=== PATIENT | female | born 1935 | race Caucasian/White ===

== ENCOUNTER 2017-06-24 08:07 | Emergency (ER) | payer MEDICARE, OTHER, SELFPAY | END 2017-06-24 10:15 | disposition home or self-care (01) | PROVIDERS: Emergency Provider Emergency Medicine; Family Provider Internal Medicine Adolescent Medicine; Visit Provider Emergency Medicine | DX: E86.0 Dehydration (principal); A08.4 Viral intestinal infection, unspecified; I10 Essential (primary) hypertension; E78.5 Hyperlipidemia, unspecified; Z79.02 Long term (current) use of antithrombotics/antiplatelets; Z79.82 Long term (current) use of aspirin; Z79.899 Other long term (current) drug therapy | CPT/HCPCS: 96360; 99282 ==

== ENCOUNTER → 2017-07-27 11:03 | Outpatient (CLI) | payer MEDICARE, OTHER, SELFPAY ==
--- NOTE | 2017-07-27 11:10 | XR_ITS ---
XR chest 2V Ordering Physician: Amena Fiore Patient Age: 82 years: Female HISTORY: ITS.REASON: COUGHcongestion TECHNIQUE: PA and lateral CXR COMPARISON :2 view chest 2016 FINDINGS : Left lung: Streaky moderate density Infiltrate left infrahilar region towards left lower lobe. A patchy infiltrate follows airways with the bronchopneumonia pattern and likely airway thickening here.. There could be some minimal infiltrate at the lingula but this is less convincing. The left upper lung field is clear. . 11 mm nodule projected over the anterior rib 5-6. It is similar to 2017 Right lung. Blunting right CP angle reflects mild chronic changes. This is seen on a prior CT chest December & April 2017 and greater detail and can be followed with interval chest CT to verify stability of this indeterminate nodule IMPRESSION: 1. Left lower lobe pneumonia 2. Again see 11 mm nodule left mid to lower lung field. As recommended prior CT chest from December and April 2017.- Warrants ongoing CT follow-up in October 2017
[2017-07-28 11:32] LABS: Vitamin B12 1439 pg/mL (232-1245); Vitamin D 25 Hydroxy 49.5 ng/mL (30.0-100.0)
== END ==
PROVIDERS: PCP Internal Medicine Adolescent Medicine; Visit Provider Nurse Practitioner Family
DX: R05 Cough (principal)
CPT/HCPCS: 36415; 71046; 82607; 82652

== ENCOUNTER 2017-12-16 18:11 | Inpatient (IN) ==
[2017-12-16 18:37] LABS: Basophils % 0.6 % (0.1-2.0); Eosinophils # 0.4 K/mm3 (0.0-0.4); Eosinophils % 4.7 % (0.1-12.0); Hematocrit 41.2 % (37.0-47.0); Hemoglobin 12.8 g/dL (12.2-16.2); Lymphocytes # 1.9 K/mm3 (0.7-4.5); Lymphocytes % 24.3 K/mm3 (10-50); Mean Corpuscular Hemoglobin 29.8 pg (27.0-31.2); Monocytes # 0.5 K/mm3 (0.1-1.0); Monocytes % 6.2 % (1.7-9.3); Neutrophils % 64.2 % (37.0-80.0); Platelet Count 303 K/mm3 (142-424); Red Blood Count 4.29 M/mm3 (4.20-5.40); Red Cell Distribution Width 13.2 % (11.5-17.5); White Blood Count 7.8 K/mm3 (4.8-10.8)
[2017-12-16 18:57] LABS: Albumin/Globulin Ratio 1.1 (1.1-1.8); Anion Gap 12.6 mEq/L (5-15); Bilirubin,Total 0.4 mg/dL (0.2-1.0); Calcium 9.3 mg/dL (8.5-10.1); Globulin 3.5 gm/dl (1.3-3.2); Potassium 3.6 mmoL/L (3.5-5.1); Total Protein,Serum 7.5 gm/dL (6.4-8.2)
--- NOTE | 2017-12-16 18:57 | Emergency Department Note ---
ED Disposition Clinical Impression: Closed right hip fracture Qualifiers: Encounter type: initial encounter Qualified Code(s): S72.001A - Fracture of unspecified part of neck of right femur, initial encounter for closed fracture Disposition: Still a Patient Condition on Discharge: Good - Critical Care Critical Care Time: No Attestation: On 12/16/17, the high probability of a clinically significant, sudden or life threatening deterioration of the following system(s) required my full and direct attention, intervention and personal management. The time I documented below is in addition to time spent performing reported procedures but includes the following listed in this critical care notation. Medical Decision Making - Aubrey Inquiry Pt receiving controlled substance: No Vital Signs: 12/16/17 18:24 Temperature 98 F Temperature Source Oral Pulse Rate [Right Brachial] 72 Respiratory Rate 20 Blood Pressure [Right Arm] 136/91 Blood Pressure Mean [Right Arm] 106 Blood Pressure Source [Right Arm] Automatic Cuff Blood Pressure Position [Right Arm] Sitting 02 Sat by Pulse Oximetry 92 L Oxygen Delivery Method Room Air - Lab Data Lab Results 12/16/17 18:10: WBC 7.8, RBC 4.29, Hgb 12.8, Hct 41.2, MCV 96.0, MCH 29.8, MCHC 31.0 L, RDW 13.2, Plt Count 303, MPV 7.0 L, Neut % (Auto) 64.2, Lymph % (Auto) 24.3, [place] % (Auto) 6.2, Eos % (Auto) 4.7, Baso % (Auto) 0.6, Neut # (Auto) 5.0 , Lymph # (Auto) 1.9, [place] # (Auto) 0.5, Eos # (Auto) 0.4, Baso # (Auto) 0.0 12/16/17 18:10: Sodium 134 L, Potassium 3.6, Chloride 98, Carbon Dioxide 27, Anion Gap 12.6, BUN 13, Creatinine 0.62, Estimated Creat Clear 43, Estimated GFR 92, Est GFR ( Amer) 111, Glucose 121 H, Calcium 9.3, Total Bilirubin 0.4, AST 25, ALT 30, Alkaline Phosphatase 78, Total Protein 7.5, Albumin 4.0, Globulin 3.5 H, Albumin/Globulin Ratio 1.1 Result diagrams: 12/16/17 18:10 12/16/17 18:10 Orders (Tests/Meds): ED MEDICATIONS Generic Name Dose Route Start Last Admin Trade Name Freq PRN Reason Stop Dose Admin Sodium Chloride 1,000 mls @ 75 mls/hr 12/16/17 20:30 Sod Chlor 0.9% 1000ml Bag IV 01/15/18 20:29 .[id number] MUNIRA Discontinued Medications Generic Name Dose Route Start Last Admin Trade Name Freq PRN Reason Stop Dose Admin Acetaminophen 650 mg 12/16/17 18:34 12/16/17 18:35 Acetaminophen 325mg Tab PO 12/16/17 18:35 650 mg ONCE ONE Administration ORDERS Category Date Time Status CT cervical spine wo con Stat Cat Scan 12/16/17 18:[address] head/brain wo con Stat Cat Scan 12/16/17 18:[address] hip RT wo con Stat Cat Scan 12/16/17 19:33 Taken Chest XR AP view [XR chest AP] Stat Exams 12/16/17 18:16 Taken XR hip RT 2-3V w/pelvis Stat Exams 12/16/17 18:17 Taken UA [Urinalysis and Microscopic] Stat Lab 12/16/17 18:20 Ordered - Radiology Data #1 Image(s): Chest, Hip Hip: Probable nondisplaced subcapital fracture right hip Chest: No acute disease - CT Data CT Scan: Head, C-Spine, Other (right hip) Time Received: 19:[address] Reviewed: Yes: I have viewed the radiologist's interpretation Findings Narrative: CT scan interpreted by ad radiologist. Faxed report received and reviewed: Head: No acute findings Cervical spine: No acute fracture Right hip: Impacted subcapital fracture - Physician Consults Physician Consulted: Rachael Time: 19:38 Reason -: Admission Comment/Response: Agrees to admit the patient to the hospital. We discussed the patient's clinical information, including history, exam, laboratory and radiology results and ED course. Per hospital procedure, I will write temporary bridge inpatient orders on the patient. Specific orders requested by the admitting physician: Orthopedic consult Additional Consult: Maria T Time: 19:25 Reason -: Pt condition General Adult HPI - General Chief complaint: Fall Stated complaint: head and right hip pain Time Seen by Provider: 12/16/17 18:57 Mode of Arrival: Family Vehicle Limitations: No Limitations Description of Symptoms (Recalled from ER Triage Doc. by RN): S/P FALL. SHORTENING OF RIGHT LEG AND KNOT RIGHT SIDE OF HEAD. TAKES PLAVIX AFTER TIA 3 YEARS AGO - History of Present Illness HPI narrative: Patient states had a mechanical fall and injured her right hip and her head. No loss of consciousness, but has a bump on the right side of her head. Denies neck pain. Hip pain is lateral. She was unable to get up and walk afterwards. No numbness or weakness. - Related Data Home Medications Medication Instructions Recorded Confirmed Acetaminophen/Diphenhydramine 2 each PO HS 12/16/17 12/16/17 [Tylenol Pm Ex-Strength Caplet] Aspirin [Aspir 81] 81 mg PO DAILY 12/16/17 12/16/17 Biotin 5,000 mcg SL DAILY 12/16/17 12/16/17 Calcium Carb, Citrate/Vit D3 1 each PO DAILY 12/16/17 12/16/17 [Citracal + D ER Tablet] Clopidogrel Bisulfate [Plavix 75mg 75 mg PO DAILY 12/16/17 12/16/17 Tab] Ezetimibe/Simvastatin [Vytorin 1 each PO DAILY 12/16/17 12/16/17 10-20 mg Tablet] Fluticasone Propionate [Flonase 1 spr NS DAILY 12/16/17 12/16/17 50mcg nasal spray 16gm] Losartan Potassium 25 mg PO DAILY 12/16/17 12/16/17 Multivitamin/Iron/Folic Acid 1 each PO DAILY 12/16/17 12/16/17 [Centrum Complete Multivit Tab] Nadolol 40 mg PO DAILY 12/16/17 12/16/17 Omeprazole [Omeprazole 20mg 20 mg PO DAILY 12/16/17 12/16/17 Capsule] Oxybutynin Chloride [Oxybutynin 10 mg PO DAILY 12/16/17 12/16/17 Chloride ER] Ubidecarenone [Co Q-10] 300 mg PO DAILY 12/16/17 12/16/17 hydroCHLOROthiazide [HCTZ 12.5mg 12.5 mg PO DAILY 12/16/17 12/16/17 cap] Allergies Allergy/AdvReac Type Severity Reaction Status Date / Time No Known Allergies Allergy Verified 12/16/17 18:31 [facility] History - Social History Alcohol Intake: never - Psychiatric History Expresses thoughts of harming self/others: None Suicide Plan Description: No Plan ROS Obtained: Yes All systems reviewed & no additional complaints - Constitutional Constitutional: Denies fever(s) - Cardiovascular Cardiovascular: Denies chest pain - Respiratory Respiratory: No dyspnea - Gastrointestinal Gastrointestingal: Denies: abdominal pain, nausea, vomiting - Musculoskeletal Musculoskeletal: Reports joint pain (Right hip), Denies back pain, Denies neck pain - Neurologic Neurologic: Denies headache(s), Denies numbness, Denies weakness Physical Exam - General General appearance: alert, in no apparent distress - Head Head exam: other (5 cm hematoma right parietal with minor abrasion, no laceration) - Eye Eye exam: Present: normal appearance, PERRL, EOMI - ENT ENT exam: Present: normal exam, normal oropharynx, mucous membranes moist, TM's normal bilaterally, normal external ear exam - Neck Neck exam: Present: normal inspection, full ROM, trachea midline. Absent: meningismus, lymphadenopathy - Chest Chest inspection: Present: normal inspection, symmetric chest wall rise. Absent : tenderness - Respiratory Respiratory exam: Present: normal lung sounds bilaterally. Absent: respiratory distress - Cardiovascular Cardiovascular exam: Present: regular rate, normal rhythm. Absent: JVD - Abdominal Exam Abdominal exam: Present: soft, normal bowel sounds. Absent: distention, tenderness, guarding - Extremities Exam Extremities exam: Present: normal capillary refill - Expanded Lower Extremity Exam Right Comment: Tenderness over right greater trochanter. Pain with flexion at 30. Pain with internal and external rotation. Mild shortening and external rotation. Neurovascular status intact. Skin intact. - Back Exam Back exam: Present: normal inspection. Absent: tenderness - Neurological Exam Neurological exam: Present: alert, oriented X3 - Psychiatric Psychiatric exam: Present: normal affect, normal mood - Skin Skin exam: Present: warm, dry, intact, normal color
[2017-12-16 20:32] LABS: Microscopic, Urine URINE MICROSCOPIC (MICROSCOPIC)
[2017-12-16 20:33] LABS: Appearance,Urine CLEAR (Clear); Bilirubin,Urine Negative (Negative); Blood, Urine TRACE-L (Negative); Color,Urine YELLOW (Yellow); Glucose,Urine (UA) Negative (Negative); Ketones,Urine Negative (Negative); Leukocyte Esterase,Urine Negative (Negative); PH,Urine 5.5 (5.0-8.5); Protein,Urine Negative (Negative); Urobilinogen,Urine 0.2 EU/dl (0.2)
[2017-12-16 20:49] LABS: Bacteria,Urine 1+ /lpf; Mucus,Urine 1+ /lpf; Squamous Epithelial Cell,Urine Occasional #/hpf (0-5)
--- NOTE | 2017-12-16 21:36 | Consult Report ---
*Admission Date: 12/16/17 *Chief complaint: R hip pain *History of present illness: 82 yo female fell at home incurring displaced subcapital right hip fx. Seen in ED and admitted. Pt has hx of what sounds to be a TIA some 3 years ago and is on Plavix 75mg daily, last taken this a.m. She is alert, cooperative in mild pain. Head--No evident lacerations but has hematoma right Neck--Nontender to palpation w/o stepoff of Cspine Chest--nontender w/o deformity Pelvis--stable to compression/distraction Extremities--pedal pulses intact, sensate to light touch bilaterally Xrays.. Right hip shows displace oblique subcapital hip fx. Recommendations: We have discussed options with the patient including non- surgical option (NOT recommended) She would best be served by hemiarthroplasty after Plavix is metabolized sufficiently. Will discuss with Dr. Cano tomorrow but may be able to take to surgery Thursday. Review of Systems - *Neurologic Denies headache(s), Denies numbness, Denies weakness [facility] History - *Social History Alcohol Intake: never - Psychiatric History Expresses thoughts of harming self/others: None Suicide Plan Description: No Plan Meds Home Medications Medication Instructions Recorded Confirmed Type Acetaminophen/Diphenhydramine 2 each PO HS 12/16/17 12/16/17 History [Tylenol Pm Ex-Strength Caplet] Aspirin [Aspir 81] 81 mg PO DAILY 12/16/17 12/16/17 History Biotin 5,000 mcg SL DAILY 12/16/17 12/16/17 History Calcium Carb, Citrate/Vit D3 1 each PO DAILY 12/16/17 12/16/17 History [Citracal + D ER Tablet] Clopidogrel Bisulfate [Plavix 75mg 75 mg PO DAILY 12/16/17 12/16/17 History Tab] Ezetimibe/Simvastatin [Vytorin 1 each PO DAILY 12/16/17 12/16/17 History 10-20 mg Tablet] Fluticasone Propionate [Flonase 1 spr NS DAILY 12/16/17 12/16/17 History 50mcg nasal spray 16gm] Losartan Potassium 25 mg PO DAILY 12/16/17 12/16/17 History Multivitamin/Iron/Folic Acid 1 each PO DAILY 12/16/17 12/16/17 History [Centrum Complete Multivit Tab] Nadolol 40 mg PO DAILY 12/16/17 12/16/17 History Omeprazole [Omeprazole 20mg 20 mg PO DAILY 12/16/17 12/16/17 History Capsule] Oxybutynin Chloride [Oxybutynin 10 mg PO DAILY 12/16/17 12/16/17 History Chloride ER] Ubidecarenone [Co Q-10] 300 mg PO DAILY 12/16/17 12/16/17 History Vytorin 10-20 mg Tablet 10 - 20 mg PO DAILY 12/16/17 12/16/17 History hydroCHLOROthiazide [HCTZ 12.5mg 12.5 mg PO DAILY 12/16/17 12/16/17 History cap] Allergies Allergy/AdvReac Type Severity Reaction Status Date / Time No Known Allergies Allergy Verified 12/16/17 18:31 Exam Vital signs and Labs for Last 24 Hours: Temp Pulse Resp BP Pulse Ox 98.2 F 84 16 133/78 95 12/16/17 20:57 12/16/17 20:57 12/16/17 20:57 12/16/17 20:57 12/16/17 20:55 Laboratory Results - last 24 hr 12/16/17 18:10: WBC 7.8, RBC 4.29, Hgb 12.8, Hct 41.2, MCV 96.0, MCH 29.8, MCHC 31.0 L, RDW 13.2, Plt Count 303, MPV 7.0 L, Neut % (Auto) 64.2, Lymph % (Auto) 24.3, [place] % (Auto) 6.2, Eos % (Auto) 4.7, Baso % (Auto) 0.6, Neut # (Auto) 5.0 , Lymph # (Auto) 1.9, [place] # (Auto) 0.5, Eos # (Auto) 0.4, Baso # (Auto) 0.0 12/16/17 18:10: Sodium 134 L, Potassium 3.6, Chloride 98, Carbon Dioxide 27, Anion Gap 12.6, BUN 13, Creatinine 0.62, Estimated Creat Clear 43, Estimated GFR 92, Est GFR ( Amer) 111, Glucose 121 H, Calcium 9.3, Total Bilirubin 0.4, AST 25, ALT 30, Alkaline Phosphatase 78, Total Protein 7.5, Albumin 4.0, Globulin 3.5 H, Albumin/Globulin Ratio 1.1 12/16/17 20:29: Urine Color Yellow, Urine Appearance Clear, Urine pH 5.5, Ur Specific [place] 1.020, Urine Protein Negative, Urine Glucose (UA) Negative, Urine Ketones Negative, Urine Blood Trace-l, Urine Nitrate Negative, Urine Bilirubin Negative, Urine Urobilinogen 0.2, Ur Leukocyte Esterase Negative, Urine RBC None, Urine WBC 3-5, Ur Squamous Epith Cells Occasional, Urine Bacteria 1+, Urine Mucus 1+ I & O for Last 24 hours: Intake & Output 12/14/17 12/15/17 12/16/17 12/17/17 11:59 11:59 11:59 11:59 Weight 152 lb 2 oz Results - Labs Result Diagrams: 12/16/17 18:10 12/16/17 18:10 Labs: Abnormal lab results 12/16/17 12/16/17 Range/Units 18:10 18:10 MCHC 31.0 L (31.8-35.4) g/dL MPV 7.0 L (7.4-10.4) fl Sodium 134 L (136-145) mmol/L Glucose 121 H (74-106) mg/dL Globulin 3.5 H (1.3-3.2) gm/dl H & H 12/16/17 Range/Units 18:10 Hgb 12.8 (12.2-16.2) g/dL Hct 41.2 (37.0-47.0) % All other labs normal.
--- NOTE | 2017-12-17 07:44 | Pharmacy Consult Notes ---
[facility] Pharmacy VTE Monitoring - Patient Demographics Admission date: 12/17/17 Report Date: 12/17/17 Time: 07:44 Allergies/Adverse Reactions: Patient Allergies No Known Allergies Allergy (Verified 12/16/17 18:31) Height: 1.57 m Weight: 69.003 kg Patient Problems: Current Active Problems Closed right hip fracture (Acute) - VTE Risk Labs: VTE Related Lab Results Hgb 12.8 g/dL (12.2-16.2) 12/16/17 18:10 Hct 41.2 % (37.0-47.0) 12/16/17 18:10 Plt Count 303 K/mm3 (142-424) 12/16/17 18:10 BUN 13 mg/dL (7-18) 12/16/17 18:10 Creatinine 0.62 mg/dL (0.55-1.02) 12/16/17 18:10 Estimated Creat Clear 43 mL/min (0-300) 12/16/17 18:10 Was VTE Risk Assessment Performed: Yes VTE Score: 2 VTE Risk Level: Very Low Risk Clinical Trial Participant: No - Prophylaxis VTE Prophylaxis Ordered?: Yes Types of VTE Prophylaxis: TEDS Knee High
--- NOTE | 2017-12-17 07:54 | History & Physical Report ---
*Admission Date: 12/17/17 *Chief complaint: Fall with hip pain *History of present illness: 82 yo female fell at home incurring displaced subcapital right hip fx. Seen in ED and admitted. She reports that she was watering her [place] and turned around to come inside and tripped, striking her right hip and scalp on concrete. She came to the emergency department because of nonambulatory status and was found to have a right subcapital hip fracture. CT scan of head was unremarkable. Orthopedics consultation reviewed. [facility] History Medical History: Reports:: Cancer (L breast), Hyperlipidemia, Hypertension, Transient Ischemic Attacks (TIA) Denies:: Diabetes Mellitus Type 1, Diabetes Mellitus Type 2, MRSA Laterality Cases: Left: Total Knee Replacement Other Surgeries: Yes: Other (Bilateral cataract removal) Amputation: No Fractures: No - *Social History Smoking Status: Never smoker Alcohol Intake: never Occupational Status: retired Housing: apartment - Psychiatric History Expresses thoughts of harming self/others: None Suicide Plan Description: No Plan *Family Hx:: Cancer, Hyperlipidemia, Hypertension, Thyroid Disorder Review of Systems - Constitutional Denies anorexia, Denies body ache(s), Denies chills - Eyes Denies blind spots - ENT Denies abnormal hearing, Denies bleeding gums - *Cardiovascular Denies chest pain, Denies chest pain at rest, Denies shortness of breath with activity, Denies generalized swelling, Denies irregular heart rhythm - *Respiratory Denies change in phlegm color, Denies chest congestion - *Gastrointestinal Denies abdominal pain, Denies belching - *Genitourinary Denies abnormal periods, Denies abnormal vaginal bleeding - *Musculoskeletal Reports abnormal walking, Reports joint pain - *Neurologic Denies abnormal walking, Denies abnormal hearing, Denies headache(s), Denies numbness, Denies weakness Meds Home Medications Medication Instructions Recorded Confirmed Type Acetaminophen/Diphenhydramine 2 each PO HS 12/16/17 12/16/17 History [Tylenol Pm Ex-Strength Caplet] Aspirin [Aspir 81] 81 mg PO DAILY 12/16/17 12/16/17 History Biotin 5,000 mcg SL DAILY 12/16/17 12/16/17 History Calcium Carb, Citrate/Vit D3 1 each PO DAILY 12/16/17 12/16/17 History [Citracal + D ER Tablet] Clopidogrel Bisulfate [Plavix 75mg 75 mg PO DAILY 12/16/17 12/16/17 History Tab] Ezetimibe/Simvastatin [Vytorin 1 each PO DAILY 12/16/17 12/16/17 History 10-20 mg Tablet] Fluticasone Propionate [Flonase 1 spr NS DAILY 12/16/17 12/16/17 History 50mcg nasal spray 16gm] Losartan Potassium 25 mg PO DAILY 12/16/17 12/16/17 History Multivitamin/Iron/Folic Acid 1 each PO DAILY 12/16/17 12/16/17 History [Centrum Complete Multivit Tab] Nadolol 40 mg PO DAILY 12/16/17 12/16/17 History Omeprazole [Omeprazole 20mg 20 mg PO DAILY 12/16/17 12/16/17 History Capsule] Oxybutynin Chloride [Oxybutynin 10 mg PO DAILY 12/16/17 12/16/17 History Chloride ER] Ubidecarenone [Co Q-10] 300 mg PO DAILY 12/16/17 12/16/17 History Vytorin 10-20 mg Tablet 10 - 20 mg PO DAILY 12/16/17 12/16/17 History hydroCHLOROthiazide [HCTZ 12.5mg 12.5 mg PO DAILY 12/16/17 12/16/17 History cap] Allergies Allergy/AdvReac Type Severity Reaction Status Date / Time No Known Allergies Allergy Verified 12/16/17 18:31 Exam Vital signs and Labs for Last 24 Hours: Temp Pulse Resp BP Pulse Ox 98.1 F 73 18 156/62 94 L 12/17/17 07:32 12/17/17 07:32 12/17/17 07:32 12/17/17 07:32 12/17/17 07:32 Laboratory Results - last 24 hr 12/16/17 18:10: WBC 7.8, RBC 4.29, Hgb 12.8, Hct 41.2, MCV 96.0, MCH 29.8, MCHC 31.0 L, RDW 13.2, Plt Count 303, MPV 7.0 L, Neut % (Auto) 64.2, Lymph % (Auto) 24.3, [place] % (Auto) 6.2, Eos % (Auto) 4.7, Baso % (Auto) 0.6, Neut # (Auto) 5.0 , Lymph # (Auto) 1.9, [place] # (Auto) 0.5, Eos # (Auto) 0.4, Baso # (Auto) 0.0 12/16/17 18:10: Sodium 134 L, Potassium 3.6, Chloride 98, Carbon Dioxide 27, Anion Gap 12.6, BUN 13, Creatinine 0.62, Estimated Creat Clear 43, Estimated GFR 92, Est GFR ( Amer) 111, Glucose 121 H, Calcium 9.3, Total Bilirubin 0.4, AST 25, ALT 30, Alkaline Phosphatase 78, Total Protein 7.5, Albumin 4.0, Globulin 3.5 H, Albumin/Globulin Ratio 1.1 12/16/17 20:29: Urine Color Yellow, Urine Appearance Clear, Urine pH 5.5, Ur Specific [place] 1.020, Urine Protein Negative, Urine Glucose (UA) Negative, Urine Ketones Negative, Urine Blood Trace-l, Urine Nitrate Negative, Urine Bilirubin Negative, Urine Urobilinogen 0.2, Ur Leukocyte Esterase Negative, Urine RBC None, Urine WBC 3-5, Ur Squamous Epith Cells Occasional, Urine Bacteria 1+, Urine Mucus 1+ I & O for Last 24 hours: Intake & Output 12/14/17 12/15/17 12/16/17 12/17/17 11:59 11:59 11:59 11:59 Intake Total 540 / 540 Output Total 600 / 600 Balance -60 / -60 Weight 152 lb 2 oz Narrative: Heart rate regular, lungs are clear. Abdomen soft. Pain with movement of the right hip. Good distal pulses. No edema. Able to wiggle toes well. She is alert and oriented 3. Contusion of the right scalp is very small, no open skin. No fortune sign, sensorium intact. H&P: Result - Labs Labs: Short CBC 12/16/17 Range/Units 18:10 WBC 7.8 (4.8-10.8) K/mm3 Hgb 12.8 (12.2-16.2) g/dL Hct 41.2 (37.0-47.0) % Plt Count 303 (142-424) K/mm3 BMP 12/16/17 18:10 Sodium 134 L Potassium 3.6 Chloride 98 Carbon Dioxide 27 BUN 13 Creatinine 0.62 Glucose 121 H Calcium 9.3 Liver Function 12/16/17 Range/Units 18:10 Total Bilirubin 0.4 (0.2-1.0) mg/dL AST 25 (15-37) U/L ALT 30 (12-78) U/L Alkaline Phosphatase 78 (46-116) U/L Albumin 4.0 (3.4-5.0) gm/dL Urine 12/16/17 Range/Units 20:29 Urine Color Yellow (Yellow) Urine Appearance Clear (Clear) Urine pH 5.5 (5.0-8.5) Ur Specific [place] 1.020 (1.005-1.030) Urine Protein Negative (Negative) Urine Glucose (UA) Negative (Negative) Assessment and Plan (1) History of TIAs Current visit: Yes Status: Acute Category: Medical Code(s): Z86.73 - Personal history of transient ischemic attack (TIA), and cerebral infarction without residual deficits She has been on Plavix. This will be held. Agree with plan surgery for Thursday. (2) Closed right hip fracture Current visit: Yes Status: Acute Qualifiers: Encounter type: initial encounter Qualified Code(s): S72.001A - Fracture of unspecified part of neck of right femur, initial encounter for closed fracture Category: Medical Code(s): S72.001A - Fracture of unspecified part of neck of right femur, initial encounter for closed fracture Surgical evaluation as noted. Discussed with patient need for rehabilitation postoperatively.
--- NOTE | 2017-12-17 11:20 | Progress Note ---
Subjective Date: 12/17/17 Time: 09:00 Interval history: Patient is awake alert no apparent distress. States she is not requiring pain medication. Fracture and CT scan reviewed with Dr. Bernal. We agree she would best be treated by a bipolar hemiarthroplasty likely using a revision stem. Will be prepared with a cup for total hip arthroplasty if significant osteoarthritis is noted. The patient states however she is having no pain whatsoever in the hip prior to this fall and resultant fracture. We will plan on proceeding with the surgery this afternoon. Case discussed with anesthesia. As the patient is relatively healthy, we will plan on the general anesthetic rather than spinal. Orthopedic literature supports going ahead with the surgery despite the Plavix rather than waiting. We will plan on using tranexamic acid. Labs reviewed. We will plan on type and crossing for 2 units of packed red blood cells as well. Risks and benefits the procedure explained to the patient and the family in detail. Nonsurgical options were discussed although these are not recommended. Patient understands risks of infection, nerve damage, leg length discrepancy, dislocation, pulmonary embolus, and understands that there may be risks that simply cannot be anticipated. She desires to proceed with surgery. She understands that having the surgery today may place her at a bit of an increased risk from blood loss standpoint but helps avoid other risks associated with delayed surgery. PN: Obj Ex Vital signs: Temp Pulse Resp BP Pulse Ox 98.1 F 73 18 156/62 94 L 12/17/17 07:32 12/17/17 07:32 12/17/17 07:32 12/17/17 07:32 12/17/17 07:32 - Urinary Catheter Management Nguyen Cath placed during this visit: yes Urethral indwelling: Yes Reason for continuing: Other continuation reason (I am not the attending physician and did not order the catheter) Insertion date: 12/16/17 Insertion time: 20:29 Progress Note: A&P (1) History of TIAs Status: Acute Current Visit: Yes (2) Closed right hip fracture Status: Acute Current Visit: Yes
--- NOTE | 2017-12-17 15:49 | Progress Note ---
[facility] Anesthesia Checklist - Patient Identification Patient Identification: Arm Band, Verbal (Name & ) - Structural Data Admitted From: Inpatient Consent for Planned Operative Procedure(s) Verified: Yes Verified Documents: Surgical Consent, History and Physical - NPO Status Verified Time NPO: 07:30 - Chart Verification Results Verified: CBC, BMP - Additional verifications Anesthesia Reactions: No - Airway Assessment C-Spine Mobility Assessed: Yes (Limite ROM) TMJ Mobility Assessed: Yes Dentition: Good Dentition - Neurological Assessment Level of Consciousness: Awake Hx Seizures: No Numbness or tingling in extremities: No - Anesthesia Plan Anesthesia Risk discussed: Yes Anesthesia Plan: Verified ASA Class: III Anesthesia Type: General [facility] Anesthesia HX I have reviewed the patient's past medical history: Yes Medical History: Reports:: Cancer (L breast), Hyperlipidemia, Hypertension, Transient Ischemic Attacks (TIA) Denies:: Diabetes Mellitus Type 1, Diabetes Mellitus Type 2, MRSA Laterality Cases: Left: Lumpectomy, Total Knee Replacement, Bilateral: Cataract Other Surgeries: Yes: Other (Bilateral cataract removal) Amputation: No Fractures: No *Family Hx:: Cancer, Hyperlipidemia, Hypertension, Thyroid Disorder
--- NOTE | 2017-12-17 20:07 | Progress Note ---
[facility] Anesthesia Record Part I Intake, IV Amount: 1,600 Estimated blood loss (mL): 600 Urine output (mL): 800 Blood Products used (#): none Blood Pressure: 140/58 SaO2: 98 Pulse Rate: 58 Respiratory Rate: 14 Temperature: 97.4 F Patient is:: Drowsy, Nasal O2, Stable Stable to PACU at:: 19:58
--- NOTE | 2017-12-17 20:08 | Progress Note ---
[facility] Anesthesia Record Part II Discharge Time: 20:28 Destination: Medical Surgical Department PACU nurse assessment reviewed?: Yes Patient Condition:: Good Anesthesia Complications:: None
[2017-12-18 07:11] LABS: Calcium 8.6 mg/dL (8.5-10.1)
[2017-12-18 07:13] LABS: Basophils % 0.2 % (0.1-2.0); Eosinophils # 0.2 K/mm3 (0.0-0.4); Eosinophils % 2.8 % (0.1-12.0); Hematocrit 25.5 % (37.0-47.0); Lymphocytes # 1.1 K/mm3 (0.7-4.5); Lymphocytes % 14.7 K/mm3 (10-50); Mean Corpuscular HGB Conc 30.9 g/dL (31.8-35.4); Mean Corpuscular Hemoglobin 29.9 pg (27.0-31.2); Mean Corpuscular Volume 96.9 fl (81-99); Mean Platelet Volume 7.4 fl (7.4-10.4); Monocytes # 0.5 K/mm3 (0.1-1.0); Monocytes % 6.3 % (1.7-9.3); Neutrophils # 5.8 K/mm3 (1.8-7.8); Neutrophils % 75.9 % (37.0-80.0); Platelet Count 191 K/mm3 (142-424); Red Blood Count 2.63 M/mm3 (4.20-5.40); Red Cell Distribution Width 13.2 % (11.5-17.5); White Blood Count 7.6 K/mm3 (4.8-10.8)
[2017-12-18 07:16] LABS: Hemoglobin 7.9 g/dL (12.2-16.2)
--- NOTE | 2017-12-18 08:12 | Progress Note ---
Internal Medicine - PN: Subj *Date: 12/18/17 *Time: 08:11 Interval history: Patient surgical procedure went very nicely yesterday. Operative note reviewed. This morning the patient has minimal pain. Has tolerated clear liquids well. Is in no distress. Exam Vital signs and Labs for Last 24 Hours: Temp Pulse Resp BP Pulse Ox 97.8 F 63 18 101/50 97 12/18/17 07:41 12/18/17 07:41 12/18/17 07:41 12/18/17 07:41 12/18/17 07:41 Laboratory Results - last 24 hr 12/17/17 14:30: Blood Type A Positive, Antibody Screen Negative, Crossmatch (AHG ) See Detail 12/18/17 06:31: WBC 7.6, RBC 2.63 L D, Hgb 7.9 L*, Hct 25.5 L, MCV 96.9, MCH 29.9, MCHC 30.9 L, RDW 13.2, Plt Count 191 D, MPV 7.4, Neut % (Auto) 75.9, Lymph % (Auto) 14.7, [place] % (Auto) 6.3, Eos % (Auto) 2.8, Baso % (Auto) 0.2, Neut # (Auto) 5.8, Lymph # (Auto) 1.1, [place] # (Auto) 0.5, Eos # (Auto) 0.2, Baso # (Auto) 0.0 12/18/17 06:31: Sodium 136, Potassium 4.0, Chloride 101, Carbon Dioxide 29, Anion Gap 10.0, BUN 13, Creatinine 0.54 L, Estimated Creat Clear 46, Estimated GFR 108, Est GFR ( Amer) 130, Glucose 116 H, Calcium 8.6 I & O for Last 24 hours: Intake & Output 12/15/17 12/16/17 12/17/17 12/18/17 11:59 11:59 11:59 11:59 Intake Total 540 / 540 2343 / 2343 Output Total 600 / 600 150 / 150 Balance -60 / -60 2193 / 2193 Weight 152 lb 2 oz Narrative: Is awake and pleasant. Lungs are clear. Heart rate regular. Abdomen soft. She has no edema in her feet. Good pulses. Assessment and Plan (1) History of TIAs Current visit: Yes Status: Acute Category: Medical Code(s): Z86.73 - Personal history of transient ischemic attack (TIA), and cerebral infarction without residual deficits (2) Closed right hip fracture Current visit: Yes Status: Acute Qualifiers: Encounter type: initial encounter Qualified Code(s): S72.001A - Fracture of unspecified part of neck of right femur, initial encounter for closed fracture Category: Medical Code(s): S72.001A - Fracture of unspecified part of neck of right femur, initial encounter for closed fracture (3) Postoperative anemia Current visit: Yes Status: Acute Category: Medical Code(s): D64.9 - Anemia , unspecified - Assessment and plan all Dx Assessment and Plan for all problems:: Doing well postoperatively. PT protocols per orthopedic service. 1 unit of packed red blood cells for her anemia. Plan on transfer to skilled care for ongoing rehab tomorrow.
--- NOTE | 2017-12-18 08:16 | Discharge Summary ---
General - General Admission date:: 12/16/17 Discharge date: 12/19/17 HPI HPI: 82 yo female fell at home incurring displaced subcapital right hip fx. Seen in ED and admitted. She reports that she was watering her [place] and turned around to come inside and tripped, striking her right hip and scalp on concrete. She came to the emergency department because of nonambulatory status and was found to have a right subcapital hip fracture. CT scan of head was unremarkable. Orthopedics consultation reviewed. Hospital Course Hospital Course: Patient was admitted, orthopedics reviewed her films and determined she was a good candidate for repair. He was watched for 24 hours off Plavix and the surgery was done late in the afternoon on 12/17/17 with excellent results. Following day she was doing well. Did require 1 unit of packed cells of transfusion. PT was started. It is planned and the patient will discharge to [facility] on 12/19/17 pending improvement of her CBC and electrolyte stability. Objective Vital signs: Temp Pulse Resp BP Pulse Ox 97.8 F 63 18 101/50 97 12/18/17 07:41 12/18/17 07:41 12/18/17 07:41 12/18/17 07:41 12/18/17 07:41 Narrative: See exam note from today. Results Labs on day of discharge: Labs from last 24 hours 12/18/17 12/18/17 12/17/17 06:31 06:31 14:30 WBC 7.6 RBC 2.63 L D Hgb 7.9 L* Hct 25.5 L MCV 96.9 MCH 29.9 MCHC 30.9 L RDW 13.2 Plt Count 191 D MPV 7.4 Neut % (Auto) 75.9 Lymph % (Auto) 14.7 [place] % (Auto) 6.3 Eos % (Auto) 2.8 Baso % (Auto) 0.2 Neut # (Auto) 5.8 Lymph # (Auto) 1.1 [place] # (Auto) 0.5 Eos # (Auto) 0.2 Baso # (Auto) 0.0 Sodium 136 Potassium 4.0 Chloride 101 Carbon Dioxide 29 Anion Gap 10.0 BUN 13 Creatinine 0.54 L Estimated Creat Clear 46 Estimated GFR 108 Est GFR ( Amer) 130 Glucose 116 H Calcium 8.6 Blood Type A Positive Antibody Screen Negative Crossmatch (AHG) See Detail DS: Diagnosis - Discharge Diagnosis (1) History of TIAs Status: Acute Problem details: Would hold Plavix at this point. Continue anticoagulation protocol from orthopedics. (2) Closed right hip fracture Status: Acute Problem details: Doing well postoperatively. Needs PT/OT evaluation at skilled care facility. (3) Postoperative anemia Status: Acute Problem details: Follow with CBC/CMP in 4 days after admission to skilled care Discharge Plan - Patient Discharge Instructions ACTIVITY: Ambulate as tolerated DIET: continue same diet - Follow up Plan Follow up with: Amena Fiore APRN [Nurse Practitioner] - 12/22/17 Home Medications: Home Medications Medication Instructions Recorded Confirmed Type Acetaminophen/Diphenhydramine 2 each PO HS 12/16/17 12/16/17 History [Tylenol Pm Ex-Strength Caplet] Aspirin [Aspir 81] 81 mg PO DAILY 12/16/17 12/16/17 History Biotin 5,000 mcg SL DAILY 12/16/17 12/16/17 History Calcium Carb, Citrate/Vit D3 1 each PO DAILY 12/16/17 12/16/17 History [Citracal + D ER Tablet] Clopidogrel Bisulfate [Plavix 75mg 75 mg PO DAILY 12/16/17 12/16/17 History Tab] Ezetimibe/Simvastatin [Vytorin 1 each PO DAILY 12/16/17 12/16/17 History 10-20 mg Tablet] Fluticasone Propionate [Flonase 1 spr NS DAILY 12/16/17 12/16/17 History 50mcg nasal spray 16gm] Losartan Potassium 25 mg PO DAILY 12/16/17 12/16/17 History Multivitamin/Iron/Folic Acid 1 each PO DAILY 12/16/17 12/16/17 History [Centrum Complete Multivit Tab] Nadolol 40 mg PO DAILY 12/16/17 12/16/17 History Omeprazole [Omeprazole 20mg 20 mg PO DAILY 12/16/17 12/16/17 History Capsule] Oxybutynin Chloride [Oxybutynin 10 mg PO DAILY 12/16/17 12/16/17 History Chloride ER] Ubidecarenone [Co Q-10] 300 mg PO DAILY 12/16/17 12/16/17 History hydroCHLOROthiazide [HCTZ 12.5mg 12.5 mg PO DAILY 12/16/17 12/16/17 History cap] Prescriptions/Medication Reconciliation: Continue Multivitamin/Iron/Folic Acid [Centrum Complete Multivit Tab] 1 each PO DAILY Calcium Carb, Citrate/Vit D3 [Citracal + D ER Tablet] 1 each PO DAILY Nadolol 40 mg PO DAILY Fluticasone Propionate [Flonase 50mcg nasal spray 16gm] 1 spr NS DAILY Losartan Potassium 25 mg PO DAILY Ezetimibe/Simvastatin [Vytorin 10-20 mg Tablet] 1 each PO DAILY Oxybutynin Chloride [Oxybutynin Chloride ER] 10 mg PO DAILY hydroCHLOROthiazide [HCTZ 12.5mg cap] 12.5 mg PO DAILY Ubidecarenone [Co Q-10] 300 mg PO DAILY Omeprazole [Omeprazole 20mg Capsule] 20 mg PO DAILY Acetaminophen/Diphenhydramine [Tylenol Pm Ex-Strength Caplet] 2 each PO HS Biotin 5,000 mcg SL DAILY Changed Aspirin [Aspir 81] 325 mg PO DAILY #0 Discontinued Clopidogrel Bisulfate [Plavix 75mg Tab] 75 mg PO DAILY
--- NOTE | 2017-12-18 10:14 | Progress Note ---
Internal Medicine - PN: Subj *Date: 12/18/17 *Time: 10:10 Interval history: Postop day #1 status post right hip replacement with a Torres nephew revision stem for a complex fracture extending into her calcar. Patient is awake, alert , no apparent distress. States she has a minimal pain and has had minimal use of pain medications. Examination shows her to be sensate to light touch in both feet. Pedal pulses are intact. Drains appear to be functioning. Drain output pending. Labs show postoperative hematocrit 25.1. Electrolytes stable. Vital signs stable. Physical therapy consult pending. ASSESSMENT stable postop day #1. Decreased hematocrit due to fracture, surgery , and presence of Plavix at time of surgery. RECOMMENDATIONS physical therapy consult, weightbearing as tolerated. Recommend having patient sit at bedside and move as necessary as she was getting some very early skin shearing even after 1 day status post fracture. Will check hematocrit and electrolytes again in the morning. Patient hemodynamically stable and no indication for transfusion currently from an orthopedic standpoint as long she remains stable. Will likely hold the drains later today if no significant output. Regarding the Plavix, can restart tomorrow morning if approved by Dr. Dahl. I will contact his office later today. Exam Vital signs and Labs for Last 24 Hours: Temp Pulse Resp BP Pulse Ox 98.6 F 65 20 113/48 93 L 12/18/17 10:07 12/18/17 10:07 12/18/17 10:07 12/18/17 10:07 12/18/17 10:07 Laboratory Results - last 24 hr 12/17/17 14:30: Blood Type A Positive, Antibody Screen Negative, Crossmatch (AHG ) See Detail 12/18/17 06:31: WBC 7.6, RBC 2.63 L D, Hgb 7.9 L*, Hct 25.5 L, MCV 96.9, MCH 29.9, MCHC 30.9 L, RDW 13.2, Plt Count 191 D, MPV 7.4, Neut % (Auto) 75.9, Lymph % (Auto) 14.7, [place] % (Auto) 6.3, Eos % (Auto) 2.8, Baso % (Auto) 0.2, Neut # (Auto) 5.8, Lymph # (Auto) 1.1, [place] # (Auto) 0.5, Eos # (Auto) 0.2, Baso # (Auto) 0.0 12/18/17 06:31: Sodium 136, Potassium 4.0, Chloride 101, Carbon Dioxide 29, Anion Gap 10.0, BUN 13, Creatinine 0.54 L, Estimated Creat Clear 46, Estimated GFR 108, Est GFR ( Amer) 130, Glucose 116 H, Calcium 8.6 12/18/17 09:20: Blood Type Confirm A Positive I & O for Last 24 hours: Intake & Output 12/15/17 12/16/17 12/17/17 12/18/17 11:59 11:59 11:59 11:59 Intake Total 540 / 540 2343 / 2343 Output Total 600 / 600 150 / 150 Balance -60 / -60 2193 / 2193 Weight 152 lb 2 oz Assessment and Plan (1) History of TIAs Problem details: Would hold Plavix at this point. Continue anticoagulation protocol from orthopedics. Current visit: Yes Status: Acute Category: Medical Code(s): Z86.73 - Personal history of transient ischemic attack (TIA) , and cerebral infarction without residual deficits (2) Closed right hip fracture Problem details: Doing well postoperatively. Needs PT/OT evaluation at skilled care facility. Current visit: Yes Status: Acute Qualifiers: Encounter type: initial encounter Qualified Code(s): S72.001A - Fracture of unspecified part of neck of right femur, initial encounter for closed fracture Category: Medical Code(s): S72.001A - Fracture of unspecified part of neck of right femur, initial encounter for closed fracture (3) Postoperative anemia Problem details: Follow with CBC/CMP in 4 days after admission to skilled care Current visit: Yes Status: Acute Category: Medical Code(s): D64.9 - Anemia, unspecified
[2017-12-18 14:00] LABS: Hematocrit 28.9 % (37.0-47.0)
[2017-12-18 14:07] LABS: Hemoglobin 9.5 g/dL (12.2-16.2)
[2017-12-19 06:07] LABS: Basophils % 0.3 % (0.1-2.0); Monocytes # 0.3 K/mm3 (0.1-1.0)
[2017-12-19 06:15] LABS: Eosinophils # 0.5 K/mm3 (0.0-0.4); Eosinophils % 8.5 % (0.1-12.0); Hematocrit 25.1 % (37.0-47.0); Lymphocytes % 15.9 K/mm3 (10-50); Mean Corpuscular HGB Conc 32.6 g/dL (31.8-35.4); Mean Corpuscular Hemoglobin 30.2 pg (27.0-31.2); Mean Corpuscular Volume 92.6 fl (81-99); Mean Platelet Volume 7.1 fl (7.4-10.4); Monocytes % 5.1 % (1.7-9.3); Neutrophils # 4.2 K/mm3 (1.8-7.8); Neutrophils % 70.4 % (37.0-80.0); Platelet Count 162 K/mm3 (142-424); Red Blood Count 2.71 M/mm3 (4.20-5.40)
[2017-12-19 06:17] LABS: Anion Gap 9.3 mEq/L (5-15); Calcium 8.1 mg/dL (8.5-10.1); Potassium 3.3 mmoL/L (3.5-5.1)
[2017-12-19 06:18] LABS: Hemoglobin 8.2 g/dL (12.2-16.2)
--- NOTE | 2017-12-19 07:31 | Progress Note ---
Internal Medicine - PN: Subj *Date: 12/19/17 *Time: 07:30 Interval history: Patient is doing well this morning. She informs me she did have to request pain medication for pain in the right hip yesterday evening. She attributes her pain to her level of activity during the day. Otherwise she feels well Exam Vital signs and Labs for Last 24 Hours: Temp Pulse Resp BP Pulse Ox 98.3 F 69 16 130/53 93 L 12/19/17 04:10 12/19/17 04:10 12/19/17 04:10 12/19/17 04:10 12/19/17 04:10 Laboratory Results - last 24 hr 12/17/17 14:30: Blood Type A Positive, Antibody Screen Negative, Crossmatch (AHG ) See Detail 12/18/17 09:20: Blood Type Confirm A Positive 12/18/17 13:00: Hgb 9.5 L D, Hct 28.9 L 12/19/17 05:45: WBC 6.0, RBC 2.71 L, Hgb 8.2 L D, Hct 25.1 L, MCV 92.6, MCH 30.2 , MCHC 32.6, RDW 14.0, Plt Count 162, MPV 7.1 L, Neut % (Auto) 70.4, Lymph % ( Auto) 15.9, [place] % (Auto) 5.1, Eos % (Auto) 8.5, Baso % (Auto) 0.3, Neut # (Auto ) 4.2, Lymph # (Auto) 1.0, [place] # (Auto) 0.3, Eos # (Auto) 0.5 H, Baso # (Auto) 0.0 12/19/17 05:45: Sodium 132 L, Potassium 3.3 L, Chloride 97 L, Carbon Dioxide 29 , Anion Gap 9.3, BUN 11, Creatinine 0.48 L, Estimated Creat Clear 46, Estimated GFR 124, Est GFR ( Amer) 149, Glucose 114 H, Calcium 8.1 L I & O for Last 24 hours: Intake & Output 12/16/17 12/17/17 12/18/17 12/19/17 11:59 11:59 11:59 11:59 Intake Total 540 / 540 2343 / 2343 1331 / 1331 Output Total 600 / 600 150 / 150 1350 / 1350 Balance -60 / -60 2193 / 2193 -19 / -19 Weight 152 lb 2 oz Narrative: She is in no distress. Lungs are clear. Heart has a regular rate and rhythm. Right hip dressing is clean dry and intact Assessment and Plan (1) History of TIAs Problem details: Would hold Plavix at this point. Continue anticoagulation protocol from orthopedics. Current visit: Yes Status: Acute Category: Medical Code(s): Z86.73 - Personal history of transient ischemic attack (TIA) , and cerebral infarction without residual deficits (2) Closed right hip fracture Problem details: Doing well postoperatively. Needs PT/OT evaluation at skilled care facility. Current visit: Yes Status: Acute Qualifiers: Encounter type: initial encounter Qualified Code(s): S72.001A - Fracture of unspecified part of neck of right femur, initial encounter for closed fracture Category: Medical Code(s): S72.001A - Fracture of unspecified part of neck of right femur, initial encounter for closed fracture (3) Postoperative anemia Problem details: Follow with CBC/CMP in 4 days after admission to skilled care Current visit: Yes Status: Acute Category: Medical Code(s): D64.9 - Anemia, unspecified - Assessment and plan all Dx Assessment and Plan for all problems:: Discharge to snf facility today. I did add narcotic pain medicine to her regimen due to her pain overnight.
[2017-12-19 07:38] VITALS: BP 123/48
--- NOTE | 2017-12-24 16:23 | Operative Note ---
Date of procedure: 12/17/17 Pre-op Diagnosis:: Right subcapital hip fracture with extension into the calcar Post-op Diagnosis:: Same Procedure performed:: Right hip bipolar hemiarthroplasty with calcar bypassing revision stem Surgeon:: Sung Live MD Lead Java Developer Architect(s):: Dr. Bernal STATE MANAGER:: Other Anesthesia: other Estimated blood loss (mL): 600 (See anesthesia sheet) Clinical Note:: The patient is an 82-year-old female who has incurred a subcapital right hip fracture which has extension of the fracture into the calcar. This compromises typical bipolar hemiarthroplasty without calcar support and thus it is necessary to use a revision stem with distal fixation. A second surgeon is required secondary to the level of osteoporosis, the fracture pattern, the propensity for bleeding secondary to the patient's oral intake of Plavix, and the difficulty of managing this fracture with a single surgeon. Operative findings:: Operative findings agreed with the CT scan and plain films preoperatively. Bone quality was satisfactory. Fracture extension of the calcar was evident Operative note:: The patient was taken the operating room given an anesthetic and then gently rolled into the right lateral decubitus position with the right hip facing upward. She was then prepped and draped in the usual sterile fashion using alcohol first followed by chlorhexidine. The perineum was sealed off using Ioband and the operative site was sealed as well. The entire operative team wore isolation suits and strict sterile technique was utilized. A posterior approach was utilized and skin incision made a #10 blade and hemostasis achieved with electrocautery. As the patient was on Plavix as an anticoagulant , strict hemostasis was achieved and the second surgeon instrumental in achieving this goal and minimizing blood loss. We carefully dissected through the soft tissues and split the tensor fascia lainey and the gluteus fascia. A Charnley retractor was placed and the limb gently currently rotated to expose the short rotators. These and the piriformis were tagged and cut for later repair. A straight incision the capsule was made and 2 Cobra retractors placed adjacent to the femoral neck. A corkscrew extractor was placed into the femoral head and it was retrieved and sized at 43 mm. An oscillating saw was then utilized to prepare the femoral neck. We could digitally feel the calcar and easily confirm that the extension of the fracture was well into the calcar thus compromising typical press-fit stem fixation. Confirming this, we elected for revision stem press-fit fixation. We utilized a [employer] cutter injury instrument followed by an entry canal finder and lateralized for the stem. We then used a series of broaches to broach up to a 13 mm stem 240 mm in length. They state and her head neck and trialed at a 33 size head. This divided relatively stable fixation and we were able to internally rotate to 70 with the hip quite stable. We then flexed the hip to approximately 80 and continued to internally rotate to 70 and the hip stable. In the sleep position with the hip adductor and and flexed we were still stable to 60. We adjusted as needed for length and took an interoperative film with a C arm fluoroscope to ensure all components were in appropriate position. We then proceeded to final implantation. A 13 mm x 240 mm revision stem by [employer]G was placed and seated in approximately 20 of anteversion. He was fitted with a 43 mm bipolar head and we reduced finding it to be as stable as the original trial construct. Leg lengths are clinically equal. We then injected with a mixture of Marcaine and morphine per Dr. Bernal's protocol for postoperative pain control and then used a dilute mixture of Betadine and the wound for a total of 3 minutes. We then irrigated out the Betadine and used pulsatile lavage to rinse the incision. We then began sequential closure. The capsule and short rotators were closed with #1 Vicryl as well as the tensor fascia lainey and gluteus mariam fascia. The deep adipose tissue and superficial adipose were closed with 2-0 Vicryl and the skin closed with a running 4-0 Monocryl suture. Dermabond was used to seal the wound followed by Steri-Strips. Dressings were applied and the patient awakened and transported to the recovery room in good position. IMPLANTS with Mc4 revision stem, press-fit, size 13 mm x 240 mm in length. 43 mm diameter bipolar head attached Condition: stable Disposition: PACU Complications:: None
== END 2017-12-19 10:05 ==
LOC: ER 18:11 → 2ND 20:18
PROVIDERS: ADMIT Internal Medicine Adolescent Medicine; ATTEND Internal Medicine Adolescent Medicine

== ENCOUNTER → 2018-01-05 08:45 | Outpatient (CLI) | payer MEDICARE, OTHER, SELFPAY ==
--- NOTE | 2018-01-05 08:48 | XR_ITS ---
XR hip RT 2-3V w/pelvis HISTORY: Follow-up hip replacement ITS.REASON: 2 WK POST OP RIGHT HIP ORDERING PHYSICIAN: Sung Live MD PATIENT AGE: 82 years COMPARISON: 12/17/2017 FINDINGS: Status post right hip replacement. Bipolar prosthesis is present with good alignment. No evidence of orthopedic complication. Osteoarthritic changes involve the left hip. IMPRESSION: Status post bipolar prosthesis placement with good alignment of the right hip
== END ==
PROVIDERS: PCP Nurse Practitioner Family; Visit Provider Orthopaedic Surgery
DX: Z47.89 Encounter for other orthopedic aftercare (principal)
CPT/HCPCS: 73502

== ENCOUNTER → 2018-01-26 09:45 | Outpatient (CLI) | payer MEDICARE, OTHER, SELFPAY ==
--- NOTE | 2018-01-26 09:48 | XR_ITS ---
XR hip RT 2-3V w/pelvis HISTORY: ITS.REASON: S/P RT HIP BIPOLAR HEMIARTHROPLASTY ORDERING PHYSICIAN: Sung Live MD PATIENT AGE: 82 years COMPARISON: Right hip 01/05/2018 FINDINGS: The bipolar prosthesis replacing the right hip is again noted and is in good alignment with no interval change from the previous study in December. Soft tissues are normal. IMPRESSION: Satisfactory appearance right hip bipolar prosthesis
== END ==
PROVIDERS: PCP Internal Medicine Adolescent Medicine; Visit Provider Orthopaedic Surgery
DX: Z98.890 Other specified postprocedural states (principal); Z47.89 Encounter for other orthopedic aftercare
CPT/HCPCS: 73502

== ENCOUNTER → 2018-02-05 12:13 | Outpatient (CLI) | payer MEDICARE, OTHER, SELFPAY ==
[2018-02-05 12:31] LABS: Blood Urea Nitrogen 12 mg/dL (7-18); Creatinine,Serum 0.58 mg/dL (0.55-1.02); Estimated Glomerular Filt Rate 99 ml/min (>60); GFR (African American) 120 ML/MIN (>60)
--- NOTE | 2018-02-05 12:38 | CT_ITS ---
CT chest wo/w con HISTORY: ITS.REASON: LUNG NODULES ORDERING PHYSICIAN: Alli Salazar MD PATIENT AGE: 82 years COMPARISON: CT chest 12/18/2016, April 29, 2017, Technique: Axial images obtained. Sagittal and coronal reformatted images are also generated and reviewed. All CT scans at the facility use one or more dose reduction, viz: automated exposure control; ma/kV adjustment per patient size (including targeted exams where dose is matched to indication; i.e. head); or iterative reconstruction technique. FINDINGS: Stable chest findings no significant change since December 2016 nor the more recent April 2017 CT chest. LUNG [place] Left chest. Stable 9.2 mm nodule at the periphery of the left lower lobe. No change since 2017 studies. No enhancement. Right lung. ... Stable slightly linear/nodular area 5.5 mm reflects I believe stable scarring at the periphery of the right lung base., Axial image 52 sagittal 22 somewhat wispy linear scarring appearance on sagittal and coronal views ... Small stable nodule RUL, just superior to the minor fissure (axial image 36). 5.6 mm mm transverse. X 5 mm height. ... Tiny pleural-based nodule axial image 20 of appears stable. Barely evident 4 mm at its base times less than 3 mm. HEART: Stable coronary artery calcifications or stents most notable at the LAD, circumflex with calcification left main.. Also.. Heart upper normal size borderline cardio megaly heart size. No significant pericardial effusion. MEDIASTINAL AND HILAR STRUCTURES: No mediastinal or hilar mass evident. No significant adenopathy. AORTA: Of minimal calcification aortic arch and proximal descending aorta. Calcification also seen at the upper abdominal aorta no remarkable intraluminal or stenotic plaque. Today's study was not designed to evaluate evaluate pulmonary arteries but the main and central pulmonary artery enhance are nicely seen with no no evidence of central pulmonary embolism.. PLEURAL SPACES: Stable rim of pleural calcification at the posterior medial right lung base. Mild fibrotic lung changes impression adjacent to these areas likely reflecting scarring. BONY STRUCTURES. T-spine intact. Old rib fractures again noted. Most evident on the right. Also old fracture at the medial head of left clavicle with progressive healing here.: No acute bony abnormalities apparent LYMPH NODES: No enlarged lymph nodes evident UPPER ABDOMEN: Stable linear overlying the dome of the liver. Otherwise unremarkable . -----IMPRESSION: 1. Stable CT chest... No significant change since previous CT chest... .Stable round 9.2 mm nodular density periphery of LLL most notable, but unchanged since studies dating back to April & December 2016 . Stable small 5.5 mm mm nodule right midlung, RUL unchanged. Other minor features right lung stable as well 2.) Stable Rim of Pleural calcification medial inferior right hemithorax. Stable Mild fibrotic changes in the lung adjacent to this area 3. Old rib fractures and healing fracture head of left clavicle again noted. 4.. Coronary artery calcification again noted. Borderline cardiomegaly Follow-up CT chest in 9-12 months adequate at this point
== END ==
PROVIDERS: Family Provider Internal Medicine Adolescent Medicine; PCP Internal Medicine Adolescent Medicine; Visit Provider Thoracic Surgery (Cardiothoracic Vascular Surgery)
DX: R91.8 Other nonspecific abnormal finding of lung field (principal)
CPT/HCPCS: 36415; 71270; 82565; 84520; Q9967

== ENCOUNTER → 2018-05-05 12:17 | Outpatient (CLI) | payer MEDICARE, OTHER, SELFPAY ==
--- NOTE | 2018-05-05 12:20 | XR_ITS ---
XR hip RT 2-3V w/pelvis HISTORY: Follow-up surgery/hip replacement ITS.REASON: S/P RT HIP BIPOLAR HEMIARTHROPLASTY ORDERING PHYSICIAN: Bud Bernal MD PATIENT AGE: 82 years COMPARISON: 01/26/2018 FINDINGS: Bipolar prosthesis remains in place. There is no evidence of dislocation. There is a long femoral stem which is in good position. No evidence of fracture or other significant anomalies. A pessary device is present over the lower pelvis. There are mild osteoarthritic changes of the left hip IMPRESSION: No change status post right hip bipolar prosthesis placement with no acute finding.
== END ==
PROVIDERS: PCP Nurse Practitioner Family; Visit Provider Orthopaedic Surgery
DX: S72.001A Fracture of unspecified part of neck of right femur, initial encounter for closed fracture (principal); M81.0 Age-related osteoporosis without current pathological fracture
CPT/HCPCS: 73502

== ENCOUNTER → 2018-05-17 09:44 | Outpatient (CLI) | payer MEDICARE, OTHER, SELFPAY ==
--- NOTE | 2018-05-17 09:47 | XR_ITS ---
XR DEXA axial skeleton HISTORY: ITS.REASON: screening ORDERING PHYSICIAN: Bud Bernal MD PATIENT AGE: 82 years COMPARISON: 07/15/2012 FINDINGS: The BMD measured at the Left Femur Total is 0.828 g/cm squared with a T score of -1.4. This is considered Osteopenic according to the World Health Organization criteria. Fracture risk is Moderate. Treatment is advised. L1 L4 density has a T score of -0.3 which is unchanged. The hip density has decreased by 1% IMPRESSION: Osteopenia with moderate fracture risk. Treatment is suggested. Recommend follow-up exam May 2020
== END ==
PROVIDERS: PCP Internal Medicine Adolescent Medicine; Visit Provider Orthopaedic Surgery
DX: M81.0 Age-related osteoporosis without current pathological fracture (principal); S72.001A Fracture of unspecified part of neck of right femur, initial encounter for closed fracture
CPT/HCPCS: 77080

== ENCOUNTER → 2018-05-27 09:43 | Outpatient (CLI) | payer MEDICARE, OTHER, SELFPAY ==
[2018-05-27 11:37] LABS: Basophils # 0.1 K/mm3 (0-0.2); Basophils % 1.1 % (0.1-2.0); Eosinophils # 0.2 K/mm3 (0.0-0.4); Eosinophils % 3.7 % (0.1-12.0); Hematocrit 38.3 % (37.0-47.0); Hemoglobin 12.1 g/dL (12.2-16.2); Lymphocytes # 1.5 K/mm3 (0.7-4.5); Lymphocytes % 25.5 % (10-50); Mean Corpuscular HGB Conc 31.5 g/dL (31.8-35.4); Mean Corpuscular Hemoglobin 29.7 pg (27.0-31.2); Mean Corpuscular Volume 94.4 fl (81-99); Mean Platelet Volume 6.6 fl (7.4-10.4); Monocytes # 0.4 K/mm3 (0.1-1.0); Monocytes % 6.1 % (1.7-9.3); Neutrophils # 3.8 K/mm3 (1.8-7.8); Neutrophils % 63.5 % (37.0-80.0); Platelet Count 346 K/mm3 (142-424); Red Blood Count 4.06 M/mm3 (4.20-5.40); Red Cell Distribution Width 15.5 % (11.5-17.5)
[2018-05-27 13:12] LABS: Alanine Aminotransferase 25 U/L (12-78); Albumin Level 3.8 gm/dL (3.4-5.0); Albumin/Globulin Ratio 1.1 (1.1-1.8); Alkaline Phosphatase 79 U/L (46-116); Anion Gap 13.2 mEq/L (5-15); Aspartate Amino Transferase 19 U/L (15-37); Bilirubin,Total 0.6 mg/dL (0.2-1.0); Blood Urea Nitrogen 17 mg/dL (7-18); Calcium 9.4 mg/dL (8.5-10.1); Carbon Dioxide 31 mmol/L (21.0-32.0); Chloride 96 mmol/L (98-107); Cholesterol 143 mg/dL (140-200); Estimated Glomerular Filt Rate 95 ml/min (>60); GFR (African American) 116 ML/MIN (>60); Globulin 3.5 gm/dl (1.3-3.2); Glucose 110 mg/dL (74-106); HDL Cholesterol 71 mg/dL (29-89); LDL Cholesterol 51 mg/dL (0-130); Potassium 4.2 mmoL/L (3.5-5.1); Sodium 136 mmol/L (136-145); Total Protein,Serum 7.3 gm/dL (6.4-8.2); Triglycerides 103 mg/dL (30-200); VLDL Cholesterol 21 mg/dL (0-40)
[2018-05-28 16:15] LABS: Vitamin B12 1873 pg/mL (232-1245); Vitamin D 25 Hydroxy 52.7 ng/mL (30.0-100.0)
== END ==
PROVIDERS: Visit Provider Nurse Practitioner Family
DX: E53.8 Deficiency of other specified B group vitamins (principal); I10 Essential (primary) hypertension; M81.0 Age-related osteoporosis without current pathological fracture; S72.001A Fracture of unspecified part of neck of right femur, initial encounter for closed fracture
CPT/HCPCS: 36415; 80053; 80061; 82607; 82652; 85025

== ENCOUNTER → 2019-04-05 12:07 | Outpatient (CLI) | payer MEDICARE, OTHER, SELFPAY ==
[2019-04-05 12:42] LABS: Basophils # 0.1 K/mm3 (0-0.2); Basophils % 0.9 % (0.1-2.0); Eosinophils # 0.3 K/mm3 (0.0-0.4); Eosinophils % 5.3 % (0.1-12.0); Hematocrit 38.4 % (37.0-47.0); Hemoglobin 12.1 g/dL (12.2-16.2); Lymphocytes # 1.6 K/mm3 (0.7-4.5); Lymphocytes % 25.8 % (10-50); Mean Corpuscular HGB Conc 31.5 g/dL (31.8-35.4); Mean Corpuscular Hemoglobin 30.5 pg (27.0-31.2); Mean Corpuscular Volume 96.7 fl (81-99); Mean Platelet Volume 7.3 fl (7.4-10.4); Monocytes # 0.4 K/mm3 (0.1-1.0); Monocytes % 6.4 % (1.7-9.3); Neutrophils # 3.8 K/mm3 (1.8-7.8); Neutrophils % 61.7 % (37.0-80.0); Platelet Count 318 K/mm3 (142-424); Red Blood Count 3.98 M/mm3 (4.20-5.40); Red Cell Distribution Width 13.4 % (11.5-17.5); White Blood Count 6.2 K/mm3 (4.8-10.8)
[2019-04-05 13:46] LABS: Alanine Aminotransferase 25 U/L (12-78); Albumin Level 3.9 gm/dL (3.4-5.0); Albumin/Globulin Ratio 1.3 (1.1-1.8); Alkaline Phosphatase 79 U/L (46-116); Anion Gap 14.1 mEq/L (5-15); Aspartate Amino Transferase 22 U/L (15-37); Bilirubin,Total 0.4 mg/dL (0.2-1.0); Blood Urea Nitrogen 14 mg/dL (7-18); Calcium 9.5 mg/dL (8.5-10.1); Carbon Dioxide 30 mmol/L (21.0-32.0); Chloride 97 mmol/L (98-107); Cholesterol 145 mg/dL (140-200); Creatinine,Serum 0.64 mg/dL (0.55-1.02); Estimated Glomerular Filt Rate 88 ml/min (>60); GFR (African American) 107 ML/MIN (>60); Globulin 3.1 gm/dl (1.3-3.2); Glucose 94 mg/dL (74-106); HDL Cholesterol 49 mg/dL (29-89); LDL Cholesterol 64 mg/dL (0-130); Potassium 4.1 mmoL/L (3.5-5.1); Sodium 137 mmol/L (136-145); Thyroid Stimulating Hormone 1.85 uIU/ml (0.358-3.740); Triglycerides 162 mg/dL (30-200); VLDL Cholesterol 32 mg/dL (0-40)
== END ==
PROVIDERS: Visit Provider Internal Medicine Adolescent Medicine
DX: E78.5 Hyperlipidemia, unspecified (principal); I10 Essential (primary) hypertension
CPT/HCPCS: 36415; 80053; 80061; 84443; 85025

== ENCOUNTER → 2020-07-26 13:12 | Outpatient (CLI) | payer MEDICARE, OTHER, SELFPAY ==
[2020-07-27 07:39] LABS: Covid-19 Nasal PCR Sendout P&C NEGATIVE
== END ==
PROVIDERS: PCP Nurse Practitioner Family; Visit Provider Nurse Practitioner Family
DX: Z11.52 Encounter for screening for COVID-19 (principal); R05 Cough; R19.7 Diarrhea, unspecified
CPT/HCPCS: U0004

== ENCOUNTER → 2020-11-27 11:02 | Outpatient (CLI) | payer MEDICARE, OTHER, SELFPAY ==
[2020-11-27 11:20] LABS: Basophils # 0.1 K/mm3 (0-0.2); Basophils % 0.9 % (0.1-2.0); Eosinophils # 0.4 K/mm3 (0.0-0.4); Eosinophils % 6.9 % (0.1-12.0); Hematocrit 35.5 % (37.0-47.0); Hemoglobin 11.9 g/dL (12.2-16.2); Lymphocytes # 1.4 K/mm3 (0.7-4.5); Lymphocytes % 25.4 % (10-50); Mean Corpuscular HGB Conc 33.5 g/dL (31.8-35.4); Mean Corpuscular Volume 92.7 fl (81-99); Monocytes # 0.4 K/mm3 (0.1-1.0); Monocytes % 7.4 % (1.7-9.3); Neutrophils # 3.2 K/mm3 (1.8-7.8); Neutrophils % 59.3 % (37.0-80.0); Platelet Count 265 K/mm3 (142-424); Red Blood Count 3.83 M/mm3 (4.20-5.40); Red Cell Distribution Width 13.7 % (11.5-17.5); White Blood Count 5.4 K/mm3 (4.8-10.8)
[2020-11-27 12:12] LABS: Chloride 98 mmol/L (98-107); Potassium 4.1 mmoL/L (3.5-5.1); Sodium 135 mmol/L (136-145)
[2020-11-27 12:14] LABS: Alanine Aminotransferase 23 U/L (12-78); Aspartate Amino Transferase 32 U/L (14-36); Blood Urea Nitrogen 22 mg/dl (7-17); Estimated Glomerular Filt Rate 79 ml/min (>60); GFR (African American) 96 ML/MIN (>60)
[2020-11-27 12:15] LABS: Albumin Level 4.6 g/dl (3.5-5.0); Albumin/Globulin Ratio 1.7 (1.1-1.8); Alkaline Phosphatase 74 U/L (38-126); Anion Gap 13.1 mEq/L (5-15); Bilirubin,Total 0.8 mg/dl (0.2-1.3); Calcium 10.2 mg/dl (8.4-10.2); Carbon Dioxide 28 mmol/L (22.0-30.0); Globulin 2.7 g/dL (1.3-3.2); Glucose 98 mg/dl (74-100); Total Protein,Serum 7.3 g/dl (6.3-8.2)
[2020-11-27 12:45] LABS: Thyroid Stimulating Hormone 2.06 uIU/mL (0.465-4.68)
== END ==
PROVIDERS: Visit Provider Internal Medicine Adolescent Medicine
DX: I10 Essential (primary) hypertension (principal)
CPT/HCPCS: 36415; 80053; 84443; 85025

== ENCOUNTER 2020-12-26 20:31 | Observation (INO) | payer MEDICARE, OTHER, SELFPAY ==
[2020-12-26] VITALS (7 sets, daily range): BP systolic 147–181; BP diastolic 64–100; PULSE 53–64; RESP 16; TEMP 36.7; O2SAT 94–97; BMI 26.0
--- NOTE | 2020-12-26 20:54 | CT_ITS ---
PROCEDURE INFORMATION: Exam: CT Abdomen And Pelvis With Contrast Exam date and time: 12/26/2020 8:54 PM Age: 85 years old Clinical indication: Localized; Patient HX: Lower abdominal pain. ; Additional info: Abd pain TECHNIQUE: Imaging protocol: Computed tomography of the abdomen and pelvis with contrast. Radiation optimization: All CT scans at this facility use at least one of these dose optimization techniques: automated exposure control; mA and/or kV adjustment per patient size (includes targeted exams where dose is matched to clinical indication); or iterative reconstruction. Contrast material: ISOVUE; Contrast volume: 75 ml; Contrast route: IV; COMPARISON: CR HIPCMRT XR hip RT 2-3V w/pelvis 05/05/2018 12:23 PM FINDINGS: Lungs: In the lung bases there is scattered scarring and atelectasis. There is a 8 mm pulmonary nodule in the left lung base. Calcified pleural scarring in the right lung base. Liver: Fatty liver. Gallbladder and bile ducts: Normal. No calcified stones. No ductal dilation. Pancreas: Normal. No ductal dilation. Spleen: Normal. No splenomegaly. Adrenal glands: Normal. No mass. Kidneys and ureters: Normal. No hydronephrosis. Stomach and bowel: Mildly distended loops of small bowel in the lower abdomen with air-fluid levels findings likely reflecting partial small bowel obstruction. Appendix: No evidence of appendicitis. Intraperitoneal space: Unremarkable. No free air. No significant fluid collection. Vasculature: Unremarkable. No abdominal aortic aneurysm. Lymph nodes: Unremarkable. No enlarged lymph nodes. Urinary bladder: Urinary bladder wall thickening could be due to cystitis. Reproductive: Pessary in place. Bones/joints: Streak artifact from right hip arthroplasty limiting evaluation in the pelvis. Degenerative changes at L5-S1. Soft tissues: Unremarkable. IMPRESSION: 1. Mildly distended loops of small bowel in the lower abdomen with air-fluid levels findings likely reflecting partial low-grade small bowel obstruction. 2. No additional acute findings. For both low risk and high risk patients, consider CT Chest at 3 months, PET/CT, or biopsy. (Reference: Bimal) References: Bimal Lucero et al. Guidelines for Management of Incidental Pulmonary Nodules Detected on CT Images: From the Fleischner Society 2017. Radiology. 2017;284(1):228-243.
[2020-12-26 21:10] LABS: Basophils # 0.1 K/mm3 (0-0.2); Basophils % 0.4 % (0.1-2.0); Eosinophils # 0.4 K/mm3 (0.0-0.4); Eosinophils % 2.9 % (0.1-12.0); Hematocrit 35.8 % (37.0-47.0); Lymphocytes # 1.5 K/mm3 (0.7-4.5); Lymphocytes % 11.1 % (10-50); Mean Corpuscular HGB Conc 33.6 g/dL (31.8-35.4); Mean Corpuscular Hemoglobin 30.3 pg (27.0-31.2); Mean Corpuscular Volume 90.3 fl (81-99); Monocytes # 0.5 K/mm3 (0.1-1.0); Monocytes % 3.8 % (1.7-9.3); Neutrophils # 10.9 K/mm3 (1.8-7.8); Neutrophils % 81.7 % (37.0-80.0); Platelet Count 302 K/mm3 (142-424); Red Blood Count 3.96 M/mm3 (4.20-5.40); Red Cell Distribution Width 13.4 % (11.5-17.5); White Blood Count 13.4 K/mm3 (4.8-10.8)
[2020-12-26 21:14] LABS: Alanine Aminotransferase 21 U/L (12-78); Albumin Level 4.5 g/dl (3.5-5.0); Albumin/Globulin Ratio 1.5 (1.1-1.8); Alkaline Phosphatase 79 U/L (38-126); Amylase 59 U/L (30-110); Aspartate Amino Transferase 28 U/L (14-36); Bilirubin,Total 0.5 mg/dl (0.2-1.3); Blood Urea Nitrogen 20 mg/dl (7-17); Calcium 9.6 mg/dl (8.4-10.2); Carbon Dioxide 27 mmol/L (22.0-30.0); Chloride 101 mmol/L (98-107); Creatinine Clearance Estimated 43 mL/min (50-200); Estimated Glomerular Filt Rate 68 ml/min (>60); GFR (African American) 82 ML/MIN (>60); Glucose 137 mg/dl (74-100); Sodium 136 mmol/L (136-145); Total Protein,Serum 7.5 g/dl (6.3-8.2)
[2020-12-26 21:15] LABS: Lipase 68 U/L (23-300)
[2020-12-26 21:20] LABS: C-Reactive Protein 4.3 mg/L (0-4)
[2020-12-26 21:31] LABS: Procalcitonin 0.045 ng/mL (0.0-2.0)
[2020-12-26 21:49] LABS: Erythrocyte Sedimentation Rate 26 mm/hr (0-30)
--- NOTE | 2020-12-26 21:52 | HMH.EDNVD ---
ED Disposition Clinical Impression: SBO (small bowel obstruction) Disposition: Admitted as Observation Condition on Discharge: Good Instructions: DI for Acute Abdominal Pain Referrals: Johnnie Cano MD [Primary Care Provider] - - Critical Care Critical Care Time: No Attestation: On 12/26/20, the high probability of a clinically significant, sudden or life threatening deterioration of the following system(s) required my full and direct attention, intervention and personal management. The time I documented below is in addition to time spent performing reported procedures but includes the following listed in this critical care notation. Medical Decision Making - Medical Records Medical records reviewed: Yes: I reviewed the patient's medical records. - Aubrey Inquiry Pt receiving controlled substance: No Vital Signs: 12/26/20 20:33 12/26/20 20:58 12/26/20 21:00 Temperature 98.1 F Temperature Source Oral Pulse Rate 53 L 54 L Pulse Rate [Right] 62 Respiratory Rate 16 Blood Pressure 157/64 H 147/68 H Blood Pressure [Right Arm] 181/100 H Blood Pressure Mean [Right Arm] 127 02 Sat by Pulse Oximetry 97 95 96 - Lab Data Lab results reviewed: Yes: I reviewed the patient's lab results. Lab Results 12/26/20 20:48: WBC 13.4 H, RBC 3.96 L, Hgb 12.0 L, Hct 35.8 L, MCV 90.3, MCH 30.3, MCHC 33.6, RDW 13.4, Plt Count 302, MPV 7.0 L, Neut % (Auto) 81.7 H, Lymph % (Auto) 11.1, [place] % (Auto) 3.8, Eos % (Auto) 2.9, Baso % (Auto) 0.4, Neut # (Auto) 10.9 H, Lymph # (Auto) 1.5, [place] # (Auto) 0.5, Eos # (Auto) 0.4, Baso # (Auto) 0.1, ESR 26 12/26/20 20:48: Sodium 136, Potassium 4.0, Chloride 101, Carbon Dioxide 27, Anion Gap 12.0, BUN 20 H, Creatinine 0.80, Estimated Creat Clear 43, Estimated GFR 68, Est GFR ( Amer) 82, Glucose 137 H, Calcium 9.6, Total Bilirubin 0.5, AST 28, ALT 21, Alkaline Phosphatase 79, C-Reactive Protein 4.3 H, Total Protein 7.5, Albumin 4.5, Globulin 3.0, Albumin/Globulin Ratio 1.5, Amylase 59, Procalcitonin 0.045 12/26/20 20:48: Lipase 68 Result diagrams: 12/26/20 20:48 12/26/20 20:48 Orders (Tests/Meds): ED MEDICATIONS Generic Name Dose Route Start Last Admin Trade Name Freq PRN Reason Stop Dose Admin Sodium Chloride 1,000 mls @ 999 mls/hr 12/26/20 21:00 12/26/20 20:57 Sod Chlor 0.9% 1000ml Bag IV 12/26/20 22:00 999 mls/hr .Q1H1M MUNIRA Administration Sodium Chloride 8 ml 12/26/20 20:55 Sodium Chloride 0.9% 10ml Vial IV 01/25/21 20:54 NEEDED PRN dilute pepcid Discontinued Medications Generic Name Dose Route Start Last Admin Trade Name Freq PRN Reason Stop Dose Admin Famotidine 20 mg 12/26/20 20:55 12/26/20 20:57 Famotidine 20mg/2ml Vial IV 12/26/20 20:56 20 mg ONCE ONE Administration Iopamidol 75 ml 12/26/20 21:41 12/26/20 21:44 Iopamidol-370 (76%);100ml Bottle IV 12/26/20 21:42 75 ml ONCE ONE Administration Metoclopramide HCl 10 mg 12/26/20 20:55 12/26/20 20:57 Metoclopramide Hcl 10mg/2ml Vial IVP 12/26/20 20:56 10 mg ONCE ONE Administration Ondansetron HCl 4 mg 12/26/20 20:55 12/26/20 20:57 Ondansetron 4mg/2ml Vial IV 12/26/20 20:56 4 mg ONCE ONE Administration Sodium Chloride 10 ml 12/26/20 21:41 12/26/20 21:44 Sodium Chloride 0.9% 10ml Syr (Rad Only) IV 12/26/20 21:42 10 ml ONCE ONE Administration ORDERS Category Date Time Status Amylase Stat Lab 12/26/20 22:50 Ordered Lipase Stat Lab 12/26/20 22:50 Ordered Rapid PCR Covid and Flu A/B Stat Lab 12/26/20 22:50 Ordered Urinalysis and Microscopic Stat Lab 12/26/20 20:54 Ordered - CT Data CT Scan: Abdomen, Pelvis Time Received: 23:[address] Reviewed: Yes: I have viewed the radiologist's interpretation Preliminary Findings: Abnormal (partial sbo) Medical Decision Narrative: sbo on ct and stable labs but will need admit Nausea/Vomiting/Diarrhea HPI - General Chief complaint: Abdominal Pain Stated c
[2020-12-26 23:05] LABS: Coronavirus 19, PCR Not Detected (NotDetected); Influenza A, PCR Not Detected (NotDetected); Influenza B, PCR Not Detected (NotDetected)
[2020-12-26 23:14] LABS: Amylase 51 U/L (30-110)
[2020-12-26 23:39] LABS: Microscopic, Urine URINE MICROSCOPIC (MICROSCOPIC)
[2020-12-26 23:52] LABS: Appearance,Urine CLEAR (Clear); Bilirubin,Urine Negative (Negative); Blood, Urine 2+ (Negative); Color,Urine YELLOW (Yellow); Glucose,Urine (UA) Negative (Negative); Ketones,Urine Negative (Negative); Leukocyte Esterase,Urine 2+ (Negative); Nitrate,Urine Negative (Negative); Protein,Urine Negative (Negative); Specific Gravity, Urine 1.015 (1.005-1.030); Urobilinogen,Urine 0.2 EU/dl (0.2)
[2020-12-26 23:56] LABS: Bacteria,Urine 2+ /lpf; Mucus,Urine 1+ /lpf; WBC,Urine 20-50 #/hpf (0-3)
[2020-12-27 00:05] VITALS: BP 144/71; PULSE 63; RESP 17; TEMP 37.1; O2SAT 97; BMI 26.0
--- NOTE | 2020-12-27 00:09 | PC.NURSE ---
PT ARRIVED TO FLOOR VIA STRETCHER FROM ED W/STAFF AT 0005
--- NOTE | 2020-12-27 00:16 | PC.NURSE ---
arrived on floor at 0016
--- NOTE | 2020-12-27 02:19 | PC.NURSE ---
Pt is currently sleeping at this time. Has not c/o any pain since arrival to floor. VSS. Lungs CTA. Pt remains on RA. BS active. Pt is tender to BLQ. Medications administered per sep. No other concerns. Will continue to monitor.
[2020-12-27 04:00] VITALS: BP 118/48; PULSE 64; RESP 17; TEMP 36.8; O2SAT 96
[2020-12-27 05:31] VITALS: BMI 26.0
[2020-12-27 06:07] LABS: Basophils % 0.4 % (0.1-2.0); Eosinophils # 0.3 K/mm3 (0.0-0.4); Hematocrit 30.9 % (37.0-47.0); Lymphocytes % 21.6 % (10-50); Mean Corpuscular HGB Conc 34.1 g/dL (31.8-35.4); Mean Corpuscular Hemoglobin 30.8 pg (27.0-31.2); Mean Corpuscular Volume 90.4 fl (81-99); Mean Platelet Volume 7.6 fl (7.4-10.4); Monocytes # 0.5 K/mm3 (0.1-1.0); Monocytes % 5.4 % (1.7-9.3); Neutrophils # 6.6 K/mm3 (1.8-7.8); Neutrophils % 69.6 % (37.0-80.0); Platelet Count 245 K/mm3 (142-424); Red Blood Count 3.42 M/mm3 (4.20-5.40); Red Cell Distribution Width 13.5 % (11.5-17.5); White Blood Count 9.4 K/mm3 (4.8-10.8)
[2020-12-27 06:10] LABS: Hemoglobin 10.4 g/dL (12.2-16.2)
[2020-12-27 06:11] LABS: Chloride 102 mmol/L (98-107); Sodium 136 mmol/L (136-145)
[2020-12-27 06:12] LABS: Potassium 4.1 mmoL/L (3.5-5.1)
[2020-12-27 06:14] LABS: Alanine Aminotransferase 18 U/L (12-78); Alkaline Phosphatase 61 U/L (38-126); Aspartate Amino Transferase 29 U/L (14-36); Bilirubin,Total 0.4 mg/dl (0.2-1.3); Blood Urea Nitrogen 20 mg/dl (7-17); Creatinine Clearance Estimated 43 mL/min (50-200); Estimated Glomerular Filt Rate 95 ml/min (>60); GFR (African American) 115 ML/MIN (>60)
[2020-12-27 06:15] LABS: Albumin Level 3.7 g/dl (3.5-5.0); Albumin/Globulin Ratio 1.4 (1.1-1.8); Anion Gap 12.1 mEq/L (5-15); Carbon Dioxide 26 mmol/L (22.0-30.0); Globulin 2.6 g/dL (1.3-3.2); Glucose 102 mg/dl (74-100); Total Protein,Serum 6.3 g/dl (6.3-8.2)
[2020-12-27 06:31] LABS: Lipase 45 U/L (23-300)
[2020-12-27 06:35] LABS: Calcium 8.6 mg/dl (8.4-10.2)
--- NOTE | 2020-12-27 06:39 | PC.NURSE ---
DR COLLINS NOTIFIED OF CONSULT.
--- NOTE | 2020-12-27 07:05 | PC.NURSE ---
Dr. Joe in room.
--- NOTE | 2020-12-27 07:18 | XR_ITS ---
PROCEDURE: XR ACUTE ABDOMEN SERIES CLINICAL INDICATION: ? early SBO vs ileus COMPARISON: CT CT ABDOMEN PELVIS W CON from 12/26/2020 FINDINGS: Heart is mildly enlarged with mild right basilar scar versus atelectasis. No free intraperitoneal air. IV contrast in the bladder from recent CT scan. Nonspecific bowel gas appearance with a few mildly dilated loops of small bowel compatible with ileus versus partial small bowel obstruction. Right hip replacement noted. Moderate amount of stool in the colon. IMPRESSION: A few mildly dilated loops of small bowel compatible with ileus versus partial small bowel obstruction. No free intraperitoneal air. No acute chest disease. Dictated by: Sung Mora MD 12/27/2020 08:27 Sung Mora MD in OV 12/27/2020 08:27
--- NOTE | 2020-12-27 07:19 | HMH.GSCON ---
*Admission Date: 12/26/20 *Reason for consult:: Possible small bowel obstruction *History of present illness: This is an 85-year-old female seen in consultation from Dr. Cano after presenting to the emergency department yesterday evening with increasing lower abdominal pain. She developed fairly acute-onset lower abdominal pain and nausea prior to presentation. Evaluation included a CT scan that showed changes consistent with possible early/partial small bowel obstruction. Currently, she states that she feels fine . She has passed some flatus since presentation to the hospital and states that she had a bowel movement yesterday morning and it was pretty normal . Review of Systems - Constitutional Denies chills - Eyes Denies change in vision - ENT Denies difficulty swallowing - *Cardiovascular Denies chest pain - *Respiratory Denies cough - *Gastrointestinal Reports abdominal pain, Reports nausea, Denies vomiting - *Neurologic Denies headache(s), Denies seizure-like activity - Psychiatric Denies anxiety - Hematologic/Lymphatic Denies easy bleeding [facility] History Medical History: Reports:: Cancer, Gastroesophageal Reflux Disease(GERD), Hyperlipidemia, Hypertension, Transient Ischemic Attacks (TIA) Denies:: Diabetes Mellitus Type 1, Diabetes Mellitus Type 2, MRSA, Seizures *Have you ever received a pneumonia vaccine?: No *Have you received a flu vaccine this season?: No Other Medical History: Reports: Arthritis, Cataracts, Glaucoma, Sinus Problems Laterality Cases: Left: Arthroscopy Knee, Lumpectomy, Right: Arthroscopy Hip Other Surgeries: Yes: Other Amputation: No Fractures: Yes (HIP) - *Social History Last grade of school completed: High school graduate Smoking Status: Former smoker Tobacco Type: cigarettes # Packs/Day (cigarettes): 1 Smoking End Date: 30 years ago Alcohol Intake: never Substance Use Type: denies use *Occupational Status:: retired Housing: apartment Household Members: none *Travel in the last 8 weeks: None Family Hx:: Non-contributory Meds Home Medications Medication Instructions Recorded Confirmed Type Acetaminophen/Diphenhydramine 2 each PO HS 12/16/17 12/26/20 History [Tylenol Pm Ex-Strength Caplet] Calcium Carb, Citrate/Vit D3 1 each PO DAILY 12/16/17 12/26/20 History [Citracal-D3 ER 600 mg-500 Unit] Ezetimibe/Simvastatin [Vytorin 1 each PO DAILY 12/16/17 12/26/20 History 10-20 mg Tablet] Fluticasone Propionate [Flonase 1 spr NS DAILY 12/16/17 12/26/20 History 50mcg nasal spray 16gm] Losartan Potassium 25 mg PO DAILY 12/16/17 12/26/20 History Multivitamin/Iron/Folic Acid 1 each PO DAILY 12/16/17 12/26/20 History [Centrum Complete Multivit Tab] Omeprazole [Omeprazole 20mg 20 mg PO DAILY 12/16/17 12/26/20 History Capsule] Oxybutynin Chloride [Oxybutynin 10 mg PO DAILY 12/16/17 12/26/20 History Chloride ER] hydroCHLOROthiazide [HCTZ 12.5mg 12.5 mg PO DAILY 12/16/17 12/26/20 History capsule] nadoloL [Nadolol] 40 mg PO DAILY 12/16/17 12/26/20 History Aspirin [Aspir 81] 325 mg PO DAILY #0 12/18/17 12/26/20 Rx Allergies Allergy/AdvReac Type Severity Reaction Status Date / Time No Known Allergies Allergy Verified 05/05/18 13:09 Exam Vital signs and Labs for Last 24 Hours: Temp Pulse Resp BP Pulse Ox 98.2 F 64 17 118/48 L 96 12/27/20 04:00 12/27/20 04:00 12/27/20 04:00 12/27/20 04:00 12/27/20 04:00 Laboratory Results - last 24 hr 12/26/20 20:48: WBC 13.4 H, RBC 3.96 L, Hgb 12.0 L, Hct 35.8 L, MCV 90.3, MCH 30.3, MCHC 33.6, RDW 13.4, Plt Count 302, MPV 7.0 L, Neut % (Auto) 81.7 H, Lymph % (Auto) 11.1, [place] % (Auto) 3.8, Eos % (Auto) 2.9, Baso % (Auto) 0.4, Neut # (Auto) 10.9 H, Lymph # (Auto) 1.5, [place] # (Auto) 0.5, Eos # (Auto) 0.4, Baso # (Auto) 0.1, ESR 26 12/26/20 20:48: Sodium 136, Potassium 4.0, Chloride 101, Carbon Dioxide 27, Anion Gap 12.0, BUN 20 H, Creatinine 0.80, Estimated Creat Clear 43, Estimated GFR 68,
[2020-12-27 07:33] VITALS: BP 124/61; PULSE 61; RESP 17; TEMP 37; O2SAT 95
--- NOTE | 2020-12-27 07:48 | P.CONPHA_ITS ---
[facility] Pharmacy VTE Monitoring - Patient Demographics Admission date: 12/26/20 Report Date: 12/27/20 Time: 07:48 Allergies/Adverse Reactions: Patient Allergies No Known Allergies Allergy (Verified 05/05/18 13:09) Height: 1.6 m Weight: 66.678 kg Patient Problems: Current Active Problems SBO (small bowel obstruction) (Acute) - VTE Risk Labs: VTE Related Lab Results Hgb 10.4 g/dL (12.2-16.2) L D 12/27/20 05:51 Hct 30.9 % (37.0-47.0) L 12/27/20 05:51 Plt Count 245 K/mm3 (142-424) 12/27/20 05:51 BUN 20 mg/dl (7-17) H 12/27/20 05:51 Creatinine 0.60 mg/dl (0.52-1.04) D 12/27/20 05:51 Estimated Creat Clear 43 mL/min (50-200) 12/27/20 05:51 VTE Score: 2 VTE Risk Level: Low Risk - Prophylaxis VTE Prophylaxis Ordered?: Yes Types of VTE Prophylaxis: TEDS Knee High Location of Applied Device: Bilateral Lower Extremeties
--- NOTE | 2020-12-27 08:45 | PC.NURSE ---
Dr. Cano in room, verbal orders received to given pt. clear liquid diet, and ambulate pt. Order read back and verified.
--- NOTE | 2020-12-27 09:06 | HMH.PHAINT ---
MEDICATION RECONCILIATION COMPLETED ON PATIENT USING EXTERNAL FILL HISTORY FROM PHARMACY AND LIST FROM PCP OFFICE. -MALCOLM MAGANAD
--- NOTE | 2020-12-27 09:12 | HMH.HP ---
*Admission Date: 12/26/20 *Chief complaint: Abdominal pain and swelling. *History of present illness: This is an 85-year-old female seen in consultation from Dr. Cano after presenting to the emergency department yesterday evening with increasing lower abdominal pain. She developed fairly acute-onset lower abdominal pain and nausea prior to presentation. Evaluation included a CT scan that showed changes consistent with possible early/partial small bowel obstruction. Currently, she states that she feels fine . She has passed some flatus since presentation to the hospital and states that she had a bowel movement yesterday morning and it was pretty normal . Emergency department evaluation also showed leukocytes in the urine. Increasing white count. [facility] History I have reviewed the patient's past medical history: Yes Medical History: Reports:: Cancer, Gastroesophageal Reflux Disease(GERD), Hyperlipidemia, Hypertension, Transient Ischemic Attacks (TIA) Denies:: Diabetes Mellitus Type 1, Diabetes Mellitus Type 2, MRSA, Seizures *Have you ever received a pneumonia vaccine?: No *Have you received a flu vaccine this season?: No Other Medical History: Reports: Arthritis, Cataracts, Glaucoma, Sinus Problems Laterality Cases: Left: Arthroscopy Knee, Lumpectomy, Right: Arthroscopy Hip Other Surgeries: Yes: Other Amputation: No Fractures: Yes (HIP) - *Social History Last grade of school completed: High school graduate Smoking Status: Former smoker Tobacco Type: cigarettes # Packs/Day (cigarettes): 1 Smoking End Date: 30 years ago Alcohol Intake: never Substance Use Type: denies use *Occupational Status:: retired Housing: apartment Household Members: none *Travel in the last 8 weeks: None Family Hx:: Non-contributory Review of Systems - Review of Systems Review of systems:: pertinent systems reviewed and negative unless documented below - *Neurologic Denies headache(s), Denies seizure-like activity Meds Home Medications Medication Instructions Recorded Confirmed Type Acetaminophen/Diphenhydramine 2 each PO HS 12/16/17 12/26/20 History [Tylenol Pm Ex-Strength Caplet] Calcium Carb, Citrate/Vit D3 1 tab PO DAILY 12/16/17 12/27/20 History [Citracal-D3 ER 600 mg-500 Unit] Ezetimibe/Simvastatin [Vytorin 1 tab PO DAILY 12/16/17 12/27/20 History 10-20 mg Tablet] Fluticasone Propionate [Flonase 1 spr NS DAILY 12/16/17 12/26/20 History 50mcg nasal spray 16gm] Multivitamin/Iron/Folic Acid 1 tab PO DAILY 12/16/17 12/27/20 History [Centrum Complete Multivit Tab] Omeprazole [Omeprazole 20mg 20 mg PO DAILY 12/16/17 12/26/20 History Capsule] Oxybutynin Chloride [Oxybutynin 10 mg PO DAILY 12/16/17 12/26/20 History Chloride ER] nadoloL [Nadolol] 40 mg PO DAILY 12/16/17 12/26/20 History Amlodipine Besylate [Norvasc 2.5mg 2.5 mg PO DAILY 12/27/20 12/27/20 History tablet] Aspirin [Aspirin 81mg EC Tab] 81 mg PO DAILY 12/27/20 12/27/20 History Losartan Potassium [Cozaar 100mg 100 mg PO DAILY 12/27/20 12/27/20 History Tablets] hydroCHLOROthiazide [HCTZ 25mg 12.5 mg PO DAILY 12/27/20 12/27/20 History tab] Allergies Allergy/AdvReac Type Severity Reaction Status Date / Time No Known Allergies Allergy Verified 05/05/18 13:09 Exam Vital signs and Labs for Last 24 Hours: Temp Pulse Resp BP Pulse Ox 98.6 F 61 17 124/61 95 12/27/20 07:33 12/27/20 07:33 12/27/20 07:33 12/27/20 07:33 12/27/20 07:33 Laboratory Results - last 24 hr 12/26/20 20:48: WBC 13.4 H, RBC 3.96 L, Hgb 12.0 L, Hct 35.8 L, MCV 90.3, MCH 30.3, MCHC 33.6, RDW 13.4, Plt Count 302, MPV 7.0 L, Neut % (Auto) 81.7 H, Lymph % (Auto) 11.1, [place] % (Auto) 3.8, Eos % (Auto) 2.9, Baso % (Auto) 0.4, Neut # (Auto) 10.9 H, Lymph # (Auto) 1.5, [place] # (Auto) 0.5, Eos # (Auto) 0.4, Baso # (Auto) 0.1, ESR 26 12/26/20 20:48: Sodium 136, Potassium 4.0, Chloride 101, Carbon Dioxide 27, Anion Gap 12.0, BUN 20 H, Creatinine
--- NOTE | 2020-12-27 10:40 | PC.NURSE ---
Pt. has walked around unit 3 separate times this am. Pt. taken to bathroom and had large formed BM. Pt. denies nausea with clear liquids. Pt. tolerated walking and using toilet well, will continue to Monitor.
--- NOTE | 2020-12-27 11:21 | PC.NURSE ---
Report given to Randolph Adam RN.
--- NOTE | 2020-12-27 11:22 | PC.WOUNDNOTE ---
Received report from NIKA oGmez @ this time. Assumed care of pt @ this time.
--- NOTE | 2020-12-27 14:26 | HMH.DCSUM ---
General - General Admission date:: 12/26/20 Discharge date: 12/27/20 HPI HPI: This is an 85-year-old female seen in consultation from Dr. Cano after presenting to the emergency department yesterday evening with increasing lower abdominal pain. She developed fairly acute-onset lower abdominal pain and nausea prior to presentation. Evaluation included a CT scan that showed changes consistent with possible early/partial small bowel obstruction. Currently, she states that she feels fine . She has passed some flatus since presentation to the hospital and states that she had a bowel movement yesterday morning and it was pretty normal . Emergency department evaluation also showed leukocytes in the urine. Increasing white count. Hospital Course Hospital Course: Patient was admitted to hospital, CT scan report showed no definite bowel obstruction. Found to have urinary tract infection, culture pending on admission. Repeat abdominal films of small bowel follow-through showed no evidence of obstruction and patient began to pass gas and have bowel movements. She wished to go home after tolerating a good lunch. She will be discharged home with cefdinir, follow-up in my office in 1 week. Objective Vital signs: Temp Pulse Resp BP Pulse Ox 98.6 F 61 17 124/61 95 12/27/20 07:33 12/27/20 07:33 12/27/20 07:33 12/27/20 07:33 12/27/20 07:33 no acute distress - *Routine HEENT Exam Head: Present: normocephalic Eye: Present: EOMI, PERRL ENT: Present: mucous membranes moist - *Routine Neck Exam Present: supple - *Routine Respiratory Exam Present: CTA bilaterally - *Routine Cardiovascular Exam Present: RRR - *Routine Abdominal Exam Present: soft, normoactive bowel sounds. Absent: tenderness - *Routine Extremities Exam Absent: cyanosis, clubbing, edema - *Routine Skin Exam Present: warm. Absent: rash - Detailed Eye Exam Eyelids: Bilateral normal inspection Results Labs on day of discharge: Labs from last 24 hours 12/27/20 12/27/20 12/27/20 05:51 05:51 05:51 WBC 9.4 D RBC 3.42 L Hgb 10.4 L D Hct 30.9 L MCV 90.4 MCH 30.8 MCHC 34.1 RDW 13.5 Plt Count 245 MPV 7.6 Neut % (Auto) 69.6 Lymph % (Auto) 21.6 [place] % (Auto) 5.4 Eos % (Auto) 3.0 Baso % (Auto) 0.4 Neut # (Auto) 6.6 Lymph # (Auto) 2.0 [place] # (Auto) 0.5 Eos # (Auto) 0.3 Baso # (Auto) 0.0 ESR Sodium 136 Potassium 4.1 Chloride 102 Carbon Dioxide 26 Anion Gap 12.1 BUN 20 H Creatinine 0.60 D Estimated Creat Clear 43 Estimated GFR 95 Est GFR ( Amer) 115 D Glucose 102 H D Calcium 8.6 D Total Bilirubin 0.4 AST 29 ALT 18 Alkaline Phosphatase 61 C-Reactive Protein Total Protein 6.3 Albumin 3.7 D Globulin 2.6 Albumin/Globulin Ratio 1.4 Amylase Lipase 45 Procalcitonin Urine Color Urine Appearance Urine pH Ur Specific [place] Urine Protein Urine Glucose (UA) Urine Ketones Urine Blood Urine Nitrate Urine Bilirubin Urine Urobilinogen Ur Leukocyte Esterase Urine RBC Urine WBC Ur Squamous Epith Cells Urine Bacteria Urine Mucus SARS-CoV-2 (PCR) Influenza A Untype (PCR) Influenza Type B (PCR) 12/26/20 12/26/20 12/26/20 23:34 22:53 20:48 WBC RBC Hgb Hct MCV MCH MCHC RDW Plt Count MPV Neut % (Auto) Lymph % (Auto) [place] % (Auto) Eos % (Auto) Baso % (Auto) Neut # (Auto) Lymph # (Auto) [place] # (Auto) Eos # (Auto) Baso # (Auto) ESR Sodium Potassium Chloride Carbon Dioxide Anion Gap BUN Creatinine Estimated Creat Clear Estimated GFR Est GFR ( Amer) Glucose Calcium Total Bilirubin AST ALT Alkaline Phosphatase C-Reactive Protein Total Protein Albumin
== END 2020-12-27 15:50 | disposition home or self-care (01) ==
LOC: ER 23:13 → 2ND 23:18
PROVIDERS: Admitting Provider Emergency Medicine; Emergency Provider Emergency Medicine; PCP Internal Medicine Adolescent Medicine; Visit Provider Internal Medicine Adolescent Medicine
DX: K56.600 Partial intestinal obstruction, unspecified as to cause (principal); K21.9 Gastro-esophageal reflux disease without esophagitis; I10 Essential (primary) hypertension; E78.5 Hyperlipidemia, unspecified; N39.0 Urinary tract infection, site not specified; Z79.899 Other long term (current) drug therapy
CPT/HCPCS: 36415; 74021; 74177; 80053; 81001; 82150; 83690; 84145; 85025; 85651; 86140; 87086; 87088; 87186; 96365; 96375; 99284; G0378; J2405; Q9967; U0003

== ENCOUNTER → 2021-04-24 16:47 | Outpatient (CLI) | payer MEDICARE, OTHER, SELFPAY ==
[2021-04-24 17:10] LABS: Basophils # 0.1 K/mm3 (0-0.2); Basophils % 1.5 % (0.1-2.0); Eosinophils # 0.3 K/mm3 (0.0-0.4); Eosinophils % 4.5 % (0.1-12.0); Hematocrit 38.4 % (37.0-47.0); Hemoglobin 12.6 g/dL (12.2-16.2); Lymphocytes # 1.5 K/mm3 (0.7-4.5); Lymphocytes % 22.5 % (10-50); Mean Corpuscular HGB Conc 32.7 g/dL (31.8-35.4); Mean Corpuscular Hemoglobin 31.6 pg (27.0-31.2); Mean Corpuscular Volume 96.6 fl (81-99); Mean Platelet Volume 7.6 fl (7.4-10.4); Monocytes # 0.4 K/mm3 (0.1-1.0); Monocytes % 6.3 % (1.7-9.3); Neutrophils # 4.4 K/mm3 (1.8-7.8); Neutrophils % 65.3 % (37.0-80.0); Platelet Count 368 K/mm3 (142-424); Red Blood Count 3.97 M/mm3 (4.20-5.40); Red Cell Distribution Width 14.8 % (11.5-17.5); White Blood Count 6.7 K/mm3 (4.8-10.8)
[2021-04-24 18:56] LABS: Alanine Aminotransferase 23 U/L (12-78); Albumin Level 4.1 g/dl (3.5-5.0); Albumin/Globulin Ratio 1.5 (1.1-1.8); Alkaline Phosphatase 72 U/L (38-126); Amylase 59 U/L (30-110); Anion Gap 10.1 mEq/L (5-15); Aspartate Amino Transferase 30 U/L (14-36); Bilirubin,Total 0.2 mg/dl (0.2-1.3); Blood Urea Nitrogen 21 mg/dl (7-17); Calcium 9.4 mg/dl (8.4-10.2); Carbon Dioxide 29 mmol/L (22.0-30.0); Chloride 102 mmol/L (98-107); Estimated Glomerular Filt Rate 59 ml/min (>60); GFR (African American) 72 ML/MIN (>60); Globulin 2.8 g/dL (1.3-3.2); Glucose 127 mg/dl (74-100); Lipase 75 U/L (23-300); Potassium 4.1 mmoL/L (3.5-5.1); Sodium 137 mmol/L (136-145); Total Protein,Serum 6.9 g/dl (6.3-8.2)
== END ==
PROVIDERS: Visit Provider Nurse Practitioner Family
DX: R10.12 Left upper quadrant pain (principal); R19.5 Other fecal abnormalities
CPT/HCPCS: 36415; 80053; 82150; 83690; 85025

== ENCOUNTER → 2021-11-09 10:32 | Outpatient (CLI) | payer MEDICARE, OTHER, SELFPAY ==
[2021-11-09 10:55] LABS: Basophils # 0.1 K/mm3 (0-0.2); Basophils % 1.2 % (0.1-2.0); Eosinophils # 0.3 K/mm3 (0.0-0.4); Eosinophils % 5.5 % (0.1-12.0); Lymphocytes # 1.4 K/mm3 (0.7-4.5); Lymphocytes % 22.4 % (10-50); Mean Corpuscular HGB Conc 32.5 g/dL (31.8-35.4); Mean Corpuscular Volume 95.2 fl (81-99); Mean Platelet Volume 7.6 fl (7.4-10.4); Monocytes # 0.5 K/mm3 (0.1-1.0); Neutrophils # 3.9 K/mm3 (1.8-7.8); Neutrophils % 62.9 % (37.0-80.0); Platelet Count 341 K/mm3 (142-424); Red Blood Count 3.89 M/mm3 (4.20-5.40); White Blood Count 6.3 K/mm3 (4.8-10.8)
[2021-11-09 11:21] LABS: Alanine Aminotransferase 22 U/L (12-78); Albumin Level 4.2 g/dl (3.5-5.0); Albumin/Globulin Ratio 1.7 (1.1-1.8); Alkaline Phosphatase 61 U/L (38-126); Anion Gap 14.3 mEq/L (5-15); Aspartate Amino Transferase 32 U/L (14-36); Bilirubin,Total 0.5 mg/dl (0.2-1.3); Blood Urea Nitrogen 27 mg/dl (7-17); Calcium 9.9 mg/dl (8.4-10.2); Carbon Dioxide 28 mmol/L (22.0-30.0); Chloride 99 mmol/L (98-107); Estimated Glomerular Filt Rate 79 ml/min (>60); GFR (African American) 96 ML/MIN (>60); Globulin 2.5 g/dL (1.3-3.2); Glucose 112 mg/dl (74-100); Potassium 4.3 mmoL/L (3.5-5.1); Sodium 137 mmol/L (136-145); Total Protein,Serum 6.7 g/dl (6.3-8.2)
== END ==
PROVIDERS: Visit Provider Nurse Practitioner Family
DX: L50.9 Urticaria, unspecified (principal)
CPT/HCPCS: 36415; 80053; 85025

== ENCOUNTER → 2021-12-11 08:49 | Outpatient (CLI) | payer MEDICARE, SELFPAY ==
[2021-12-11 10:12] LABS: Occult Blood,Stool Negative (Negative)
== END ==
PROVIDERS: Visit Provider Nurse Practitioner Family
DX: R19.5 Other fecal abnormalities (principal)
CPT/HCPCS: 82272; G0328

== ENCOUNTER 2022-08-03 11:33 | Emergency (ER) | payer MEDICARE, OTHER, SELFPAY ==
[2022-08-03 12:20] VITALS: BMI 25.8
--- NOTE | 2022-08-03 12:20 | XR_ITS ---
PROCEDURE INFORMATION: Exam: XR Chest Exam date and time: 08/03/2022 12:25 PM Age: 87 years old Clinical indication: Cough TECHNIQUE: Imaging protocol: Radiologic exam of the chest. Views: 2 views. COMPARISON: CHESTWW CT chest wo/w con 02/05/2018 1:31 PM FINDINGS: Lungs: Unremarkable. No consolidation. Pleural spaces: Unremarkable. No pleural effusion. No pneumothorax. Heart/Mediastinum: Unremarkable. No cardiomegaly. Bones/joints: Unremarkable. IMPRESSION: No acute findings. No infiltration is seen.
[2022-08-03 12:40] VITALS: BP 149/86; PULSE 74; RESP 19; TEMP 37; O2SAT 96; BMI 25.8
[2022-08-03 13:09] LABS: UTC Influenza A Antigen Negative (Negative); UTC Influenza B Antigen Negative (Negative)
--- NOTE | 2022-08-03 13:11 | EXP.UTC ---
Discharge Plan Disposition Patient Disposition: Home, Self-Care Condition: Good Prescriptions Prescriptions: New benzonatate 100 mg capsule 100 mg PO TID PRN (Reason: cough) Qty: 15 0RF cefdinir 300 mg capsule 300 mg PO BID Qty: 20 0RF No Action amlodipine 2.5 MG tablet 2.5 mg PO DAILY aspirin 81 MG tablet,delayed release (DR/EC) 81 mg PO DAILY hydrochlorothiazide 25 MG tablet 12.5 mg PO DAILY losartan 100 MG tablet 100 mg PO DAILY cefdinir 300 MG capsule 300 mg PO BID Qty: 14 0RF oxybutynin chloride 10 MG tablet extended release 24hr 10 mg PO DAILY omeprazole 20 MG capsule,delayed release(DR/EC) 20 mg PO DAILY nadolol 40 MG tablet 40 mg PO DAILY diphenhydramine-acetaminophen 1 EACH tablet 2 each PO HS fluticasone propionate 120 SPR/BOT bottle 1 spr NS DAILY ezetimibe-simvastatin 1 EACH tablet 1 tab PO DAILY ugbwmwekjfio-iizr-otxuq acid 1 EACH tablet 1 tab PO DAILY calcium carb and citrate-vitD3 1 EACH tablet extended release 1 tab PO DAILY Referrals Follow up/Referrals: Amena Fiore APRN [Primary Care Provider] - See instructions Activity Restrictions/Add. Instructions Additional Instructions/Restrictions: *Monitor Temp, Over the counter Motrin or Tylenol as directed/as needed Tylenol every 4 hours and Motrin every 6 hours (as long as your family doctor has told you that you can take it) for fever or pain. and straight to ER if unable to lower temp less than 101.0 after medication given *Warm salt water gargles may help to soothe the throat *Throat Lozenges? *Warm fluids like tea with honey may help to soothe the throat? *Sleep elevated *Humidifier/Vaporizer Take medication as prescribed Follow up IMMEDIATELY for new or worsening symptoms or no Noticeable improvement over the next 48-72 hours. 911 for difficulty breathing or swallowing Clinical Impressions Clinical Impression: Sinusitis Instructions Patient Instructions: Sinusitis, DI for Sinusitis Discharge ED Provider: Arabella Gibbons [facility] [place] Stated complaint: Cough restless bodyaches congestion Mode of Arrival: Ambulatory Source of Information: Patient Limitations: No Limitations Time Seen by Provider: 08/03/22 13:12 Description of Symptoms (Recalled from Triage Doc. by RN): PATIENT C/O BODY ACHES, TROUBLE SLEEPING, CONGESTION, AND DRY COUGH X 4 DAYS HEENT Symptoms (Recalled from RN notes): No Resp Symptoms (Recalled from RN notes): Yes Skin Symptoms (Recalled from RN notes): No MS Symptoms (Recalled from RN notes): No Functional Status (Recalled from RN notes): WNL History of Present Illness Provider Complaint: Patient states that she hasnt been feeling well for close to week States that she has been having sinus congestion and pressure, dry cough, and body aches States that pressure behind eyes States that today she was still not feeling well so she came in Related Data Home Medications Medication Instructions Recorded Confirmed calcium carb,cit ER 600 mg-vit D3 1 tab PO DAILY Supplement 12/16/17 12/27/20 12.5 mcg (500 unit) tablet,ext.rel diphenhydramine 25 2 each PO HS SLEEP 12/16/17 12/26/20 mg-acetaminophen 500 mg tablet ezetimibe 10 mg-simvastatin 20 mg 1 tab PO DAILY Cholesterol 12/16/17 12/27/20 tablet fluticasone propionate 50 1 spr NS DAILY Allergy symptoms 12/16/17 12/26/20 mcg/actuation nasal spray,suspension multivitamin-ferrous 1 tab PO DAILY Supplement 12/16/17 12/27/20 fumarate-folic acid 18 mg-400 mcg tablet nadolol 40 mg tablet 40 mg PO DAILY Hypertension 12/16/17 12/26/20 omeprazole 20 mg capsule,delayed 20 mg PO DAILY acid reflux 12/16/17 12/26/20 release oxybutynin chloride 10 mg 10 mg PO DAILY overactive bladder 12/16/17 12/26/20 tablet,extended release 24 hr amlodipine 2.5 mg tablet 2.5 mg PO DAILY Hypertension 12/27/20 12/27/20 aspirin 81 mg tablet,d
[2022-08-03 13:45] VITALS: BP 149/86; PULSE 74; RESP 19; TEMP 37; O2SAT 96
== END 2022-08-03 13:46 | disposition home or self-care (01) ==
PROVIDERS: Emergency Provider Nurse Practitioner; PCP Nurse Practitioner Family
DX: J32.9 Chronic sinusitis, unspecified (principal)
CPT/HCPCS: 71046; 87804; 99212; 99213; G0463

== ENCOUNTER 2022-12-16 17:14 | Emergency (ER) | payer MEDICARE, OTHER, SELFPAY ==
[2022-12-16 17:35] VITALS: BP 216/110; PULSE 85; RESP 18; TEMP 36.8; O2SAT 98; BMI 25.4
[2022-12-16 17:36] VITALS: BP 216/102
--- NOTE | 2022-12-16 17:44 | EXP.UTC ---
Discharge Plan Disposition Patient Disposition: Still a Patient Condition: Fair Prescriptions Prescriptions: No Action amlodipine 2.5 MG tablet 2.5 mg PO DAILY aspirin 81 MG tablet,delayed release (DR/EC) 81 mg PO DAILY hydrochlorothiazide 25 MG tablet 12.5 mg PO DAILY losartan 100 MG tablet 100 mg PO DAILY cefdinir 300 MG capsule 300 mg PO BID Qty: 14 0RF benzonatate 100 mg capsule 100 mg PO TID PRN (Reason: cough) Qty: 15 0RF cefdinir 300 mg capsule 300 mg PO BID Qty: 20 0RF oxybutynin chloride 10 MG tablet extended release 24hr 10 mg PO DAILY omeprazole 20 MG capsule,delayed release(DR/EC) 20 mg PO DAILY nadolol 40 MG tablet 40 mg PO DAILY diphenhydramine-acetaminophen 1 EACH tablet 2 each PO HS fluticasone propionate 120 SPR/BOT bottle 1 spr NS DAILY ezetimibe-simvastatin 1 EACH tablet 1 tab PO DAILY bughuzomufxl-bpss-cwcst acid 1 EACH tablet 1 tab PO DAILY calcium carb and citrate-vitD3 1 EACH tablet extended release 1 tab PO DAILY Referrals Follow up/Referrals: Amena Fiore APRN [Primary Care Provider] - See instructions Activity Restrictions/Add. Instructions Additional Instructions/Restrictions: Today you presented with a headache and no evidence of any clinical endorgan damage associate with your hypertension. There is no emergency indication to rapidly lower your blood pressure however I want you to closely follow-up with your primary care doctor regarding escalation of your oral antihypertensive medications and to keep a blood pressure log at home morning afternoon and night for the discussion of escalation of your blood pressure medications. Your CT scan of your head did not show any acute abnormalities. Please follow-up with your primary care doctor regarding treatment of your headaches from an outpatient standpoint as well return with any change in mental status strokelike symptoms or any other concerns. Clinical Impressions Clinical Impression: Headache, Hypertension Discharge ED Provider: Arabella Gibbons [facility] [place] General Chief complaint: Headache Stated complaint: headache Mode of Arrival: Ambulatory Source of Information: Patient Limitations: No Limitations Time Seen by Provider: 12/16/22 17:57 Description of Symptoms (Recalled from Triage Doc. by RN): PATIENT C/O BAD HEADACHE WITH NAUSEA X 2 DAYS. DENIES VISION CHANGES OR DIZZINESS HEENT Symptoms (Recalled from RN notes): Yes Resp Symptoms (Recalled from RN notes): No Skin Symptoms (Recalled from RN notes): No MS Symptoms (Recalled from RN notes): No Functional Status (Recalled from RN notes): WNL History of Present Illness Provider Complaint: Patient states that she has been having headaches at times over the last 3 weeks that would just go away States that she had headache yesterday and it went away but then this morning it was back and it is not getting any better just kept getting worse Rates pain a 8/ States that she use to have headaches years ago but not had any until now States that she has been seeing the Eye Doctor and not noticed any vision changes but has had nausea and upset stomach with pain/pressure in her head Related Data Home Medications Medication Instructions Recorded Confirmed calcium carb,cit ER 600 mg-vit D3 1 tab PO DAILY Supplement 12/16/17 12/27/20 12.5 mcg (500 unit) tablet,ext.rel diphenhydramine 25 2 each PO HS SLEEP 12/16/17 12/26/20 mg-acetaminophen 500 mg tablet ezetimibe 10 mg-simvastatin 20 mg 1 tab PO DAILY Cholesterol 12/16/17 12/27/20 tablet fluticasone propionate 50 1 spr NS DAILY Allergy symptoms 12/16/17 12/26/20 mcg/actuation nasal spray,suspension multivitamin-ferrous 1 tab PO DAILY Supplement 12/16/17 12/27/20 fumarate-folic acid 18 mg-400 mcg tablet nadolol 40 mg tablet 40 mg PO DAILY Hypertension 12/16/17 12/26/20 omeprazole 20 mg capsule,delayed 20 mg PO DAILY acid ref
--- NOTE | 2022-12-16 17:46 | PC.NURSE ---
PATIENT SENT TO ER PER Randolph CAUSEY APRN FOR FURTHER EVALUATION. REPORT GIVEN TO González HENSON RN BY Randolph CAUSEY APRN
--- NOTE | 2022-12-16 17:56 | HMH.EDGENADL ---
Discharge Plan Disposition Patient Disposition: Still a Patient Condition: Fair Prescriptions Prescriptions: No Action amlodipine 2.5 MG tablet 2.5 mg PO DAILY aspirin 81 MG tablet,delayed release (DR/EC) 81 mg PO DAILY hydrochlorothiazide 25 MG tablet 12.5 mg PO DAILY losartan 100 MG tablet 100 mg PO DAILY cefdinir 300 MG capsule 300 mg PO BID Qty: 14 0RF benzonatate 100 mg capsule 100 mg PO TID PRN (Reason: cough) Qty: 15 0RF cefdinir 300 mg capsule 300 mg PO BID Qty: 20 0RF oxybutynin chloride 10 MG tablet extended release 24hr 10 mg PO DAILY omeprazole 20 MG capsule,delayed release(DR/EC) 20 mg PO DAILY nadolol 40 MG tablet 40 mg PO DAILY diphenhydramine-acetaminophen 1 EACH tablet 2 each PO HS fluticasone propionate 120 SPR/BOT bottle 1 spr NS DAILY ezetimibe-simvastatin 1 EACH tablet 1 tab PO DAILY xuicvkdhgyke-qiyv-zuumw acid 1 EACH tablet 1 tab PO DAILY calcium carb and citrate-vitD3 1 EACH tablet extended release 1 tab PO DAILY Referrals Follow up/Referrals: Amena Fiore APRN [Primary Care Provider] - See instructions Activity Restrictions/Add. Instructions Additional Instructions/Restrictions: Today you presented with a headache and no evidence of any clinical endorgan damage associate with your hypertension. There is no emergency indication to rapidly lower your blood pressure however I want you to closely follow-up with your primary care doctor regarding escalation of your oral antihypertensive medications and to keep a blood pressure log at home morning afternoon and night for the discussion of escalation of your blood pressure medications. Your CT scan of your head did not show any acute abnormalities. Please follow-up with your primary care doctor regarding treatment of your headaches from an outpatient standpoint as well return with any change in mental status strokelike symptoms or any other concerns. Clinical Impressions Clinical Impression: Headache, Hypertension Discharge ED Provider: Arabella Gibbons Adult HPI General Chief complaint: Headache Stated complaint: headache Time Seen by Provider: 12/16/22 17:57 Mode of Arrival: Ambulatory Source of Information: Patient Limitations: No Limitations Description of Symptoms (Recalled from ER Triage Doc. by RN): PATIENT C/O BAD HEADACHE WITH NAUSEA X 2 DAYS. DENIES VISION CHANGES OR DIZZINESS History of Present Illness HPI narrative: Patient is an 87-year-old female presenting today with a headache and hypertension. This has been ongoing for 24 hours she has had intermittent headaches for a long period of time has been treated for migraines in the past and this headache just is not going away. She states its not out of proportion to headache she has had in the past there is been no thunderclap component and no neurologic symptoms associated with this. She states she is only been able to take Tylenol because she does not want to take any other medications . She denies any chest pain shortness of breath changes in mental status decrease in urination or any other symptoms. Related Data Home Medications Medication Instructions Recorded Confirmed calcium carb,cit ER 600 mg-vit D3 1 tab PO DAILY Supplement 12/16/17 12/27/20 12.5 mcg (500 unit) tablet,ext.rel diphenhydramine 25 2 each PO HS SLEEP 12/16/17 12/26/20 mg-acetaminophen 500 mg tablet ezetimibe 10 mg-simvastatin 20 mg 1 tab PO DAILY Cholesterol 12/16/17 12/27/20 tablet fluticasone propionate 50 1 spr NS DAILY Allergy symptoms 12/16/17 12/26/20 mcg/actuation nasal spray,suspension multivitamin-ferrous 1 tab PO DAILY Supplement 12/16/17 12/27/20 fumarate-folic acid 18 mg-400 mcg tablet nadolol 40 mg tablet 40 mg PO DAILY Hypertension 12/16/17 12/26/20 omeprazole 20 mg capsule,delayed 20 mg PO DAILY acid reflux 12/16/17 12/26/20 release oxybutynin chloride 10 mg
[2022-12-16 17:57] VITALS: BP 183/86; PULSE 84; RESP 20; TEMP 36.6; O2SAT 96; BMI 25.4
--- NOTE | 2022-12-16 18:04 | CT_ITS ---
PROCEDURE INFORMATION: Exam: CT Head Without Contrast Exam date and time: 12/16/2022 6:15 PM Age: 87 years old Clinical indication: Other: Headache; Additional info: DUDLEY. High blood pressure. Headache above left eye brow , followed with nausea TECHNIQUE: Imaging protocol: Computed tomography of the head without contrast. Radiation optimization: All CT scans at this facility use at least one of these dose optimization techniques: automated exposure control; mA and/or kV adjustment per patient size (includes targeted exams where dose is matched to clinical indication); or iterative reconstruction. REPORTING DATA: Count of CT and Cardiac NM exams in prior 12 months: This patient has received 0 known CTs and 0 known cardiac nuclear medicine studies in the 12 months prior to the current study. COMPARISON: CT HEAD/BRAIN WO CON 02/24/2019 1:11 PM FINDINGS: Brain: There is generalized cerebral atrophy with diffuse white matter hypoattenuation compatible with chronic microvascular ischemic change and/or demyelination. These findings have progressed since the prior study from 2019. No discrete intracranial mass lesion, midline shift or hemorrhage evident. There has developed a moderate-sized area of hypoattenuation in the left daksha concerning for ischemic change of indeterminate age. Cerebral ventricles: No ventriculomegaly. Paranasal sinuses: Visualized sinuses are unremarkable. No fluid levels. Mastoid air cells: Visualized mastoid air cells are well aerated. Bones/joints: Unremarkable. No acute fracture. Soft tissues: Unremarkable. IMPRESSION: Area of hypoattenuation in the left daksha suggesting ischemic change of indeterminate age. Otherwise progression of chronic appearing changes as noted. No intracranial hemorrhage.
--- NOTE | 2022-12-16 19:19 | PC.NURSE ---
Dr. Akbar at BS updating pt
[2022-12-16 19:54] VITALS: BP 132/72; PULSE 81; RESP 16; TEMP 36.7; O2SAT 98
== END 2022-12-16 19:56 | disposition still patient (30) ==
LOC: UTC 17:20 → ER 17:44
PROVIDERS: Emergency Provider Nurse Practitioner; PCP Nurse Practitioner Family
DX: R51.9 Headache, unspecified (principal); I10 Essential (primary) hypertension; I48.91 Unspecified atrial fibrillation; F41.9 Anxiety disorder, unspecified; F32.A Depression, unspecified; E78.5 Hyperlipidemia, unspecified
CPT/HCPCS: 70450; 96361; 96374; 96375; 99284

== ENCOUNTER → 2022-12-30 08:36 | Outpatient (CLI) | payer MEDICARE, OTHER, SELFPAY ==
[2022-12-30 10:07] LABS: Chloride 94 mmol/L (98-107); Sodium 137 mmol/L (136-145)
[2022-12-30 10:08] LABS: Potassium 3.4 mmoL/L (3.5-5.1)
[2022-12-30 10:11] LABS: Anion Gap 15.4 mEq/L (5-15); Blood Urea Nitrogen 23 mg/dl (7-17); Carbon Dioxide 31 mmol/L (22.0-30.0); Estimated Glomerular Filt Rate 68 ml/min (>60); GFR (African American) 82 ML/MIN (>60); Glucose 106 mg/dl (74-100)
== END ==
PROVIDERS: PCP Nurse Practitioner Family; Visit Provider Nurse Practitioner Family
DX: Z00.00 Encounter for general adult medical examination without abnormal findings (principal)
CPT/HCPCS: 36415; 80048

== ENCOUNTER → 2023-01-01 08:28 | Outpatient (CLI) | payer MEDICARE, OTHER, SELFPAY ==
--- NOTE | 2023-01-01 | CA_ITS ---
FINAL REPORT TECHNIQUE: Real-time imaging was performed of the extracranial carotid arteries in transverse and longitudinal planes, with color duplex evaluation of blood flow velocity. Spectral analysis was performed. The cervical vertebral arteries were also examined. CLINICAL HISTORY: stroke, headache FINDINGS: NASCET technique is utilized for stenosis evaluation. Right carotid system (centimeters/second): CCA: 54 ICA: 65.8 ECA: 85 Vertebral artery: Antegrade ICA/CCA ratio: 1.64 Moderate plaque is identified at the bifurcation. Left carotid system (centimeters/second): CCA: 66.8 ICA: 120.8 ECA: 96.3 Vertebral artery: Antegrade ICA/CCA ratio: 2.7 Moderate plaque is identified at the bifurcation. IMPRESSION: Less than 50 % right ICA stenosis. Less than 50 % left ICA stenosis. Antegrade flow in the vertebral arteries bilaterally. Reviewed, Interpreted and Dictated by Edmundo Bender MD Transcribed by Eleni Duke Authenticated and [facility]
--- NOTE | 2023-01-01 08:36 | MR_ITS ---
FINAL REPORT CLINICAL HISTORY: ISCHEMIC STROKE... MIGRAINE... ACUTE INTRACTABLE HEADACHE 13ml prohance FINDINGS: Multiplanar MR imaging of the brain was performed without and with contrast. There is extensive abnormal signal in the deep white matter, with a wedge shaped left posterior occipital region of encephalomalacia in this patient with a history of prior stroke. There is no evidence of intracranial hemorrhage or mass. No abnormal extra-axial fluid collection is seen. The ventricular size is normal for age, with moderate atrophy noted diffusely. There is no evidence of shift of the midline structures. The posterior fossa and brainstem have an unremarkable appearance. No area of abnormal restricted diffusion is identified. No abnormal contrast enhancement is seen. Normal major vessel vascular flow voids are noted. IMPRESSION: Moderate atrophy with extensive abnormal signal in the deep white matter compatible with chronic ischemic/gliotic changes. No acute intracranial abnormality identified. Reviewed, Interpreted and Dictated by Edmundo Bender MD Transcribed by Eleni Duke Authenticated and [facility]
== END ==
LOC: RAD 08:29
PROVIDERS: PCP Nurse Practitioner Family; Visit Provider Nurse Practitioner Family
DX: G43.909 Migraine, unspecified, not intractable, without status migrainosus; Z86.73 Personal history of transient ischemic attack (TIA), and cerebral infarction without residual deficits
CPT/HCPCS: 70553; 93880; A9576